=== PATIENT | female | born 1995 | race Caucasian/White ===

== ENCOUNTER → 2017-08-08 22:02 | Outpatient (CLI) | payer OTHER, SELFPAY | PROVIDERS: Visit Provider Physician Assistant | DX: J02.9 Acute pharyngitis, unspecified (principal) | CPT/HCPCS: 87081 ==

== ENCOUNTER → 2017-12-14 18:00 | Outpatient (CLI) | payer OTHER, SELFPAY ==
--- NOTE | 2017-12-14 18:23 | CT_ITS ---
STUDY: CT MAXILLOFACIAL SINUSES REASON FOR EXAM: Female, 22 years old. Sinusitis. RADIATION DOSAGE (If Supplied By Facility): CTDIvol = ( 33.06 ) mGy, DLP = ( 854.51 ) mGycm TECHNIQUE: The patient was scanned in a multi detector CT scanner. High resolution axial imaging was performed without the administration of intravenous contrast material. Sagittal and coronal images were reconstructed. Individualized dose optimization techniques were used for this CT. COMPARISON: None. FINDINGS: FRONTAL SINUSES: Normal aeration, without mucosal inflammatory disease. ETHMOIDAL SINUSES: Normal aeration, without mucosal inflammatory disease. MAXILLARY SINUSES: Normal aeration, without mucosal inflammatory disease. SPHENOIDAL SINUSES: Normal aeration, without mucosal inflammatory disease. There is patency of the bilateral maxillary infundibuli with normal uncinate processes, ethmoid bullae, and hiatus semilunaris. Normal bilateral middle turbinates. Normal bilateral inferior turbinates. Normal midline nasal septum. There is patency of the bilateral nasal airways. The visualized osseous structures are normal. The visualized bilateral orbital contents are normal. CT/Sinus/Facial Bone IMPRESSION: Normal CT examination of the maxillofacial sinuses. Electronically Signed: Torres Bar MD at 21:41 EDT , Service support ,
== END ==
PROVIDERS: Visit Provider Otolaryngology
DX: J32.9 Chronic sinusitis, unspecified (principal)
CPT/HCPCS: 70486

== ENCOUNTER → 2018-05-08 11:52 | Outpatient (CLI) | payer OTHER, SELFPAY ==
--- NOTE | 2018-05-08 17:00 | STRESSREP ---
Stress Test Report Exercise stress test. 22-year-old lady with a history of chest pain. Stress protocol: Resting EKG demonstrates sinus rhythm with a rate of 48 bpm and sinus arrhythmia. The patient exercised according to regular Bj protocol for total duration of 13 minutes and 21 seconds the maximum heart rate attained was 171 bpm which was 85% of maximum predicted heart rate maximum workload was 15.9 metabolic equivalents. At rest there were no ST or T wave changes noted suggest ischemia at peak exercise upsloping ST changes only were noted with no meet the criteria for ischemia. No clinical angina was noted. The patient had mild dizziness 9 minutes into the exercise. She did complain of mild chest pressure. The above did not appear to be suggestive of ischemia. The resting blood pressure 102/50 with a peak blood pressure 144/30 mmHg with a rate pressure product was 23,300. Conclusion 1. exercise stress test with no EKG criteria for ischemia at a high workload. no arrhythmias noted No obvious clinical angina noted.
== END ==
PROVIDERS: PCP Physician Assistant; Referring Provider Internal Medicine Cardiovascular Disease; Visit Provider Internal Medicine Cardiovascular Disease
DX: R07.9 Chest pain, unspecified (principal)
CPT/HCPCS: 93017

== ENCOUNTER 2018-07-19 12:38 | Emergency (ER) | payer OTHER, SELFPAY ==
[2018-07-12 10:05] VITALS: BMI 21.7
[2018-07-19 12:39] VITALS: BP 105/48; PULSE 75; RESP 16; TEMP 37.1; O2SAT 98; BMI 22.6
--- NOTE | 2018-07-19 12:59 | CT_ITS ---
STUDY: CT ABDOMEN AND PELVIS WITHOUT CONTRAST REASON FOR EXAM: Female, 22 years old. Bilateral flank pain worse on the right side. Recent UTI. RADIATION DOSAGE (If Supplied By Facility): CTDIvol = ( 5.33 ) mGy, DLP = ( 244.06 ) mGycm TECHNIQUE: Transaxial images were obtained from the dome of the diaphragm to the symphysis pubis without oral contrast, and without intravenous contrast. Sagittal and coronal images were reconstructed. Individualized dose optimization techniques were used for this CT. COMPARISON: None. FINDINGS: The visualized lung bases are unremarkable. The visualized portions of the heart are within normal limits. Normal liver. Normal gallbladder and extrahepatic biliary system. Normal spleen. Normal pancreas. Normal bilateral adrenal glands. Normal right kidney. Normal left kidney. There is a small hiatal hernia. Normal small intestine. Large amount of fecal material is in the colon. The appendix is visualized and appears normal. Normal abdominal aorta. Normal inferior vena cava. Normal retroperitoneum. Normal urinary bladder. IUD is seen within the uterus. Normal abdominal wall. Normal osseous structures. CT/Abdomen/Pelvis without Cont IMPRESSION: Large amount of fecal material is seen throughout the colon. Electronically Signed: Sam Torres MD at 13:57 EST , Service support ,
[2018-07-19 13:27] LABS: Absolute Lymphocyte Count 2.07 X10^3/ul (0.83-4.51); Absolute Neutrophil Count 3.1 X10^3/uL (2.0-7.7); Basophil# 0.02 X10^3/uL; Basophil% 0.4 % (0-1); Eosinophil# 0.05 X10^3/uL; Eosinophils% 0.9 % (0-5); Hematocrit 39.1 % (37-47); Hemoglobin 13.4 g/dl (12.0-15.0); Lymphocyte # 2.07 X10^3/ul (4.0); Lymphocyte % 37.7 % (19-41); Mean Corp Hgb Conc 34.3 g/gl (32-36); Mean Corpuscular Hgb 30.4 pg (27.0-32.0); Mean Corpuscular Volume 88.7 fL (81-99); Mean Platelet Vol. 9.6 fl (6.2-12.0); Monocyte# 0.26 X10^3/uL; Monocyte% 4.7 % (0-10); Neutrophil # 3.08 X10^3/uL (2.7-7.7); Neutrophil % 56.1 % (47-70); Platelet Count 192 K/mm3 (150-450); RBC Distribution Width CV 12.2 % (11.6-14.6); RBC Distribution Width SD 39.4 fl (35.1-43.9); Red Blood Count 4.41 M/mm3 (4.2-5.4); White Blood Count 5.5 K/mm3 (4.4-11.0)
[2018-07-19] MEDS: 0.9% Normal Saline 1,000 ML 150 ML IV (13:27)
[2018-07-19 13:28] LABS: POSITIVE COUNT NO; POSITIVE DIFFERENTIAL NO; POSITIVE MORPHOLOGY NO
[2018-07-19 13:42] LABS: ALB/GLOB Ratio 1.2 RATIO (0.9-2.4); AST(SGOT) 19 U/L (15-37); Alanine Aminotransfer ALT/SGPT 30 U/L (13-56); Albumin, Serum 3.8 g/dL (3.2-5.0); Alkaline Phosphatase 74 U/L (45-117); Anion Gap 10 (5-15); BUN 16 mg/dL (7-18); BUN/Creat Ratio 22.9 RATIO (10-20); Calcium,Total 8.5 mg/dL (8.5-10.1); Chloride 110 mmol/L (98-107); EST Glomerular Filtration Rate 112 mL/min (>60); Est Glom Filt Rate - Afr Amer 135 mL/min (>60); Estimated Creatinine Clearance 95.93 ml/min; Globulin 3.1 g/dL (2.2-4.2); Glucose 84 mg/dL (74-106); Lipase 246 U/L (73-393); Potassium 3.6 mmol/L (3.5-5.1); Protein, Total 6.9 g/dL (6.4-8.2); Sodium Level 143 mmol/L (136-145)
[2018-07-19 13:50] LABS: Bacteria 0 SEEN /hpf (None Seen); Mucous, Urine 0 SEEN /hpf (<or=2+); Red Blood Cells-Urine 0 SEEN /hpf (0-5)
[2018-07-19 13:52] LABS: Lactic Acid 0.7 mmol/L (0.4-2.0)
[2018-07-19 14:03] VITALS: BP 108/51; PULSE 71; RESP 14; O2SAT 100
[2018-07-19 14:07] LABS: Color, Urine Yellow (Yellow); Glucose, Dipstick Normal (Normal); Ketone-Dipstick Negative (Negative); Leukocyte Esterase-Dipstick 25 /ul (Negative); Nitrite-Dipstick Negative (Negative); Occult Blood-Urine Negative /ul (Negative); Protein-Dipstick Negative (Negative); Urine Bilirubin Dipstick Negative (Negative); Urine Clarity Sl. Cloudy (Clear); Urine Urobilinogen Normal (Normal)
[2018-07-19 14:09] LABS: Squamous Epithelial Cells - UA 0-5 SEEN /hpf (5-10); White Blood Cells 0-5 SEEN /hpf (0-5)
--- NOTE | 2018-07-19 14:28 | ED.VISSUMM ---
- ER Visit Summary Date of Service: 07/19/18 Chief Complaint: [Flank pain] History of Present Illness: The patient is a 22 F [presents the emergency department complaint of flank pain that she is had for about 10 days. Patient was seen about a week ago at an urgent care and diagnosed with a urinary tract infection and started on an antibiotic which she is been on for about a week now. Patient cannot tell me the name of the antibiotic. Patient continues to complain of dysuria and frequency. She denies any fever. She is had no vomiting. Patient describes the pain as her lower abdomen and both sides of her back but more on the right than the left. Patient was seen again today by her primary care physician and sent to the ER for evaluation. She had a urine test in the office today that was negative. Patient also has the Mirena IUD in place and does not believe she is .] Physical Examination: [HEENT-PERRLA, EOMI. Cranial nerves II through XII grossly intact. TMs clear. Mucous membranes moist. No adenopathy. Cardiovascular-regular rate and rhythm without murmur or ectopy Lungs-clear to auscultation, chest wall stable without crepitus or subcu emphysema Abdomen-normoactive bowel sounds, soft patient has tenderness palpation over the suprapubic region. There is some mild guarding. No rebound, rigidity, or perineal signs. No masses palpated. Patient does have CVA tenderness bilaterally. Extremities-intact ?4, normal range of motion, normal pulses, atraumatic] Test Results: [CBC with differential obtained showed a white blood cell count of 5.5, hemoglobin 13, hematocrit 39, placed 192. Chemistries were normal. LFTs were normal. Lipase is normal. Urinalysis was normal. 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 Patient states that she had similar pain at the age of 19 that just resolved over time.] Disposition: [Discharged home in stable condition. Patient advised to return if fever, vomiting, worsening pain, or condition should worsen anyway.] Impression: [Abdominal pain-etiology uncertain] This note was generated with Dragon dictation software. It may contain incorrect words, spelling, and punctuation that were not noted in review of the chart prior to signing ED Disposition - Plan for ED Patient: Chief Complaint: Flank Pain Referrals: Dimple Silver PA [Primary Care Provider] -
--- NOTE | 2018-07-19 14:32 | ED.DCSUM_ITS ---
- ER Visit Summary Date of Service: 07/19/18 Chief Complaint: [Flank pain] History of Present Illness: The patient is a 22 F [presents the emergency department complaint of flank pain that she is had for about 10 days. Patient was seen about a week ago at an urgent care and diagnosed with a urinary tract i nfection and started on an antibiotic which she is been on for about a week now. Patient cannot tell me the name of the antibiotic. Patient continues to complain of dysuria and frequency. She denies any fever. She is had no vomiting. Patient describes the pain as her lower abdomen and both sides of her back but more on the right than the left. Patient was seen again today by her primary care physician and sent to the ER for evaluation. She had a urine test in the office today that was negative. Patient also has the Mirena IUD in place and does not believe she is .] Physical Examination: [HEENT-PERRLA, EOMI. Cranial nerves II through XII grossly intact. TMs clear. Mucous membranes moist. No adenopathy. Cardiovascular-regular rate and rhythm without murmur or ectopy Lungs-clear to auscultation, chest wall stable without crepitus or subcu emphysema Abdomen-normoactive bowel sounds, soft patient has tenderness palpation over the suprapubic region. There is some mild guarding. No rebound, rigidity, or perineal signs. No masses palpated. Patient does have CVA tenderness bilaterally. Extremities-intact ?4, normal range of motion, normal pulses, atraumatic] Test Results: [CBC with differential obtained showed a white blood cell count of 5.5, hemoglobin 13, hematocrit 39, placed 192. Chemistries were normal. LFTs were normal. Lipase is normal. Urinalysis was normal. 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 Patient states that she had similar pain at the age of 19 that just resolved over time.] Disposition: [Discharged home in stable condition. Patient advised to return if fever, vomiting, worsening pain, or condition should worsen anyway.] Impression: [Abdominal pain-etiology uncertain] This note was generated with [email or web address] dictation software. It may contain incorrect words, spelling, and punctuation that were not noted in review of the chart prior to signing ED Disposition - Plan for ED Patient: Chief Complaint: Flank Pain Referrals: Dimple Silver PA [Primary Care Provider] -
--- NOTE | 2018-07-19 14:32 | ED.DEP ---
ED Disposition - Plan for ED Patient: Chief Complaint: Flank Pain Instructions: ED Abdominal Pain Unkn Cause Referrals: Dimple Silver PA [Primary Care Provider] - 3-5 Days Claire Chang [STAFF PHYSICIAN] -
--- OUTSIDE RECORDS SUMMARY | 2018-09-20 12:22 | XMS RPT_ITS ---
:1995 Author Organization OHIP Support Name Relationship Address Phone KIAH INS Unavailable [address] + [place] [address] CHRISTIANA KENNEDY Unavailable [address] + [place] [address] MALINI SHAE Unavailable [address] + [place] [address] KIAH INS Unavailable [address] + [place] [address] MARCIA, CHRISTIANA Unavailable [address] + [place] [address] MALINI SHEA Unavailable [address] + [place] [address] KIAH INS Unavailable [address] + [place] [address] SHESHARRI, CHRISTIANA Unavailable [address] + [place] [address] MALINI, SHEA Unavailable Unavailable + [place] [address] KIAH INS Unavailable [address] + [place] [address] SHEELY, CHRISTIANA Unavailable [address] + [place] [address] MALINI SHEA Unavailable [address] + [place] [address] KIAH INS Unavailable . + [place] [address] MARCIA, CHRISTIANA Unavailable [address] + [place] [address] MALINI SHEA Unavailable [address] + [place] [address] KIAH INS Unavailable . + [place] [address] CHRISTIANA KENNEDY Unavailable [address] + [place] [address] ALBA NAYAKORAH Unavailable [address] + [place] [address] KIAH INS Unavailable . + [place] [address] CHRISTIANA KENNEDY Unavailable [address] + [place] [address] SPRCHIDI SHEA Unavailable [address] + [place] [address] CHRISTIANA KENNEDY Unavailable [address] + [place] [address] ALBA NAYAKORAH Unavailable [address] + [place] [address] UE Unavailable Unavailable Unavailable CHRISTIANA KENNEDY Unavailable [address] + [place] [id number] ALBA NAYAKORAH Unavailable [address] + [place] [id number] UE Unavailable Unavailable Unavailable Care Team Providers Name Role Phone JACKI WISE (PIPE SUPERVISOR) Attending Unavailable Justice Morejon Attending Unavailable SILVER, JUVENTINO Referring Unavailable Ungur, Remus Attending Unavailable SILVER, JUVENTINO Primary Care Unavailable Justice Morejon Attending Unavailable Primay Care Physicia, No Referring Unavailable Primay Care Physicia, No Primary Care Unavailable Justice Morejon Attending Unavailable Primay Care Physicia, No Primary Care Unavailable Justice Morejon Referring Unavailable Arnulfoann, Varun Attending Unavailable Primay Care Physicia, No Primary Care Unavailable Glynntmann, Varun Referring Unavailable Natty Gibson Attending Unavailable Teresita, José Luis Attending Unavailable SILVER, JUVENTINO Referring Unavailable Teresita, [place] Attending Unavailable Teresita, [place] Referring Unavailable Primay Care Physicia, No Primary Care Unavailable Teresita, [place] Attending Unavailable Teresita, [place] Referring Unavailable PROBLEMS PROBLEMS DATE TYPE CONDITION / CODE ATTENDING STATUS SOURCE 07/19/2018 Unknown R11.0 - Nausea / Justice Morejon Active [facility] R11.0(ICD-10) [facility] Repository 07/19/2018 Unknown N30.90 - Justice Morejon Active [facility] Cystitis, Community unspecified Hospital without hematuria Repository / N30.90(ICD-10) 07/19/2018 Unknown R07.9 - Chest Teresita, José Luis Active [facility] pain, unspecified Community / R07.9(ICD-10) Hospital Repository 04/26/2018 Unknown R42 - Dizziness Teresita, José Luis Active [facility] and giddiness / Community R42(ICD-10) Hospital Repository 04/26/2018 Unknown R55 - Syncope and Teresita, [place] Active [facility] collapse / Community R55(ICD-10) Hospital Repository 04/26/2018 Unknown Z82.49 - Family Teresita, [place] Active [facility] history of Community ischemic heart Hospital disease and other Repository diseases of the circulatory system / Z82.49(ICD-10) 08/09/2017 Unknown J02.9 - Acute Justice Morejon Active [facility] pharyngitis, Community unspecified / Hospital J02.9(ICD-10) Repository 08/08/2017 Unknown R52 - Pain, Justice Morejon Active [facility] unspecified / Community R52(ICD-10) Hospital Repository PROCEDURES PROCEDURES No Procedure Records FoundRESULTS RESULTS EMERGENCY DEPARTMENT Observed: 07/19/2018 Status: F Source: MARKS SUMMARY 2:32 PM [facility] [place] Medical Records Department [address] [place] [address] Emergency Department Summary 07/19/18 1428 MR#: [id number] Acct: [id number] Name: ROXY NAYAK Rep #: [id number] : 1995 22 From: Deandre [place] DO PCP: EDITH MERINO Status: REG ER - ER Visit Summary Date of Service: 07/19/18 Chief Complaint: [Flank pain] History of Present Illness: The patient is a 22 F [presents the emergency department complaint of flank pain that she is had for about 10 days. Patient was seen about a week ago at an urgent care and diagnosed with a urinary tract infection and started on an antibiotic which she is been on for about a week now. Patient cannot tell me the name of the antibiotic. Patient continues to complain of dysuria and frequency. She denies any fever. She is had no vomiting. Patient describes the pain as her lower abdomen and both sides of her back but more on the right than the left. Patient was seen again today by her primary care physician and sent to the ER for evaluation. She had a urine test in the office today that was negative. Patient also has the Mirena IUD in place and does not believe she is .] Physical Examination: [HEENT-PERRLA, EOMI. Cranial nerves II through XII grossly intact. TMs clear. Mucous membranes moist. No adenopathy. Cardiovascular-regular rate and rhythm without murmur or ectopy Lungs-clear to auscultation, chest wall stable without crepitus or subcu emphysema Abdomen-normoactive bowel sounds, soft patient has tenderness palpation over the suprapubic region. There is some mild guarding. No rebound, rigidity, or perineal signs. No masses palpated. Patient does have CVA tenderness bilaterally. Extremities-intact 4, normal range of motion, normal pulses, atraumatic] Test Results: [CBC with differential obtained showed a white blood cell count of 5.5, hemoglobin 13, hematocrit 39, placed 192. Chemistries were normal. LFTs were normal. Lipase is normal. Urinalysis was normal. 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 Patient states that she had similar pain at the age of 19 that just resolved over time.] Disposition: [Discharged home in stable condition. Patient advised to return if fever, vomiting, worsening pain, or condition should worsen anyway.] Impression: [Abdominal pain-etiology uncertain] This note was generated with [employer] dictation software. It may contain incorrect words, spelling, and punctuation that were not noted in review of the chart prior to signing ED Disposition - Plan for ED Patient: Chief Complaint: Flank Pain Referrals: Juventino Silver PA [Primary Care Provider] - What to do if you have Problems For any increased pain, shortness of breath, bleeding, nausea or vomiting, chest pain, or any unexpected problems, contact your Primary Care Provider. Call [facility] ([phone]) or report to the closest Emergency Room. Call 911 if necessary. 07/19/18 1432 <Electronically signed by Deandre [place] DO> Date Amy Iram NELSON Cosigngaudencio Signature (If Indicated): Date CC: EDITH SILVER DISCHARGE INSTRUCTION Observed: 07/19/2018 Status: F Source: VENUS 2:32 PM [facility] REPOSITORY [facility] Medical Records Department [address] [place] [address] Discharge Instruction 07/19/18 143 MR#: [id number] Acct: [id number] Name: ROXY NAYAK Rep #: [id number] : 1995 22 From: Deandre [place] DO PCP: EDITH MERINO Status: REG ER ED Disposition - Plan for ED Patient: Chief Complaint: Flank Pain Instructions: ED Abdominal Pain Unkn Cause Referrals: Juventino Silver PA [Primary Care Provider] - 3-5 Days Claire Chang [STAFF PHYSICIAN] - What to do if you have Problems For any increased pain, shortness of breath, bleeding, nausea or vomiting, chest pain, or any unexpected problems, contact your Primary Care Provider. Call [facility] ([phone]) or report to the closest Emergency Room. Call 911 if necessary. 07/19/181431 <Electronically signed by Deandre [place] DO> Date Amy Iram NELSON Cosigngaudencio Signature (If Indicated): Date CC: EDITH SILVER URINALYSIS, COMPLETE Collected: 07/19/2018 Status: F Source: [facility] 1:45 PM [facility] Order Comment: How was Urine Obtained? CLEAN CATCH TYPE CODE TESTS RESULT OUT OF RANGE REFERENCE UNITS LAB L400.3000 Yellow COLOR Normal Yellow LAB L400.3050 Clear Normal CLARITY Sl. Cloudy LAB L400.3200 Normal mg/dl Normal GLUCOSE, UR Normal LAB L400.3300 Negative mg/dL Normal BILIRUBIN URINE Negative LAB L400.3400 Negative mg/dl Normal KETONE UR Negative LAB L400.3465 1.002-1.030 Normal SP.GR. DIPSTX 1.010 LAB L400.3550 5.0 - 8.0 pH UR Normal 7.0 LAB L400.3600 Negative mg/dl PROT Normal DIPSTX Negative LAB L400.3700 Normal mg/dl Normal UROBILI Normal LAB L400.3750 Negative Normal NITRITE UR Negative LAB L400.3780 Negative /ul Normal OCCULT BLOOD-UR Negative LAB L400.3800 Negative /ul High LEUK 25 ESTERASE LAB L400.4050 0-5 /hpf WBC Normal 0-5 SEEN LAB L400.4100 0-5 /hpf 0 Normal RBC-UA SEEN LAB L400.4150 5-10 /hpf SQUAM Normal EPI 0-5 SEEN LAB L400.4300 None Seen /hpf 0 Normal BACTERIA SEEN LAB L400.4350 <or=2+ /hpf 0 Normal MUCUS, URINE SEEN Performed By: #### L400.0001 #### [facility] [address] [place], [place], [address] LACTIC ACID Collected: 07/19/2018 Status: F Source: MARKS 1:20 PM [facility] [place] Order Comment: Yes/No query for Sepsis Lactate Rule Y TYPE CODE TESTS RESULT OUT OF RANGE REFERENCE UNITS LAB L503.6005 0.4-2.0 mmol/L Normal LACTIC ACID 0.7 Performed By: #### L503.6005 #### [facility] [address] [place], [place], [address] CBC W/DIFF, AUTOMATED Collected: 07/19/2018 Status: F Source: MARKS 1:06 PM [facility] [place] TYPE CODE TESTS RESULT OUT OF RANGE REFERENCE UNITS LAB L100.1000 4.4-11.0 K/mm3 Normal WBC 5.5 LAB L100.1200 4.2-5.4 M/mm3 Normal RBC 4.41 LAB L100.1300 12.0-15.0 g/dl Normal HGB 13.4 LAB L100.1400 37-47 % Normal HCT 39.1 LAB L100.1500 81-99 fL Normal MCV 88.7 LAB L100.1600 27.0-32.0 pg Normal MCH 30.4 LAB L100.1700 32-36 g/gl Normal MCHC 34.3 LAB L100.1810 11.6-14.6 % Normal RDW CV 12.2 LAB L100.1820 35.1-43.9 fl Normal RDW SD 39.4 LAB L100.1900 150-450 K/mm3 Normal PLT 192 LAB L100.2000 6.2-12.0 fl Normal MPV 9.6 LAB L100.2100 47-70 % Normal NEUT% 56.1 LAB L100.2200 19-41 % Normal LY% 37.7 LAB L100.2300 0-10 % Normal MONO% 4.7 LAB L100.2400 0-5 % Normal EO% 0.9 LAB L100.2500 0-1 % Normal BASO% 0.4 LAB L100.2550 0.0-0.9 % Normal IM GRAN % 0.200 Result Comment: IG% - Immature Granulocytes (promyelocytes, myelocytes and metamyelocytes) > 1% indicates that a LEFT SHIFT is Present. LAB L100.2620 2.0-7.7 X10 3/uL Normal Absolute Neut 3.1 LAB L100.2720 0.83-4.51 X10 3/ul Normal Absolute Lymph 2.07 Performed By: #### L100.0100 #### [facility] [address], [address] COMPREHENSIVE METABOLIC Collected: 07/19/2018 Status: F Source: [facility] 1:06 PM [facility] [place] [facility] TYPE CODE TESTS RESULT OUT OF RANGE REFERENCE UNITS LAB L501.0100 74-106 mg/dL Normal GLU 84 Result Comment: Please note revised GLUCOSE reference range effective 2017. LAB L501.1000 7-18 mg/dL Normal BUN 16 LAB L501.1100 0.55-1.02 mg/dL Normal CREAT,SERUM 0.70 Result Comment: The validity of the calculated GFR AND GFRAA in patients over 70 years has not been determined. Clinical correlation is essential. LAB L501.1110 >60 mL/min Normal EST GFR 112 Result Comment: Non- GFR Calc LAB L501.1115 >60 mL/min Normal EST GFR - AA 135 Result Comment: GFR Calc LAB L501.1255 ml/min Normal Estimated CRCL 95.93 LAB L501.1300 10-20 RATIO High BUN/CRE 22.9 LAB L501.1500 6.4-8. g/dL Normal 2 T PROT 6.9 LAB L501.1800 3.2-5. g/dL Normal 0 ALB 3.8 LAB L501.1950 2.2-4. g/dL Normal 2 GLOB 3.1 LAB L501.2000 0.9-2. RATIO Normal 4 A/G 1.2 LAB L501.2200 8.5-10 mg/dL Normal .1 CA 8.5 LAB L501.4100 15-37 U/L Normal AST 19 LAB L501.4305 45-117 U/L Normal ALK P 74 LAB L501.4405 13-56 U/L Normal ALT 30 LAB L501.4600 0.20-1 mg/dL Normal .00 T BILI 0.50 LAB L501.5300 136-14 mmol/L Normal 5 NA 143 LAB L501.5600 3.5-5. mmol/L Normal 1 K 3.6 LAB L501.5900 98-107 mmol/L High CL 110 LAB L501.6100 21.0-3 mmol/L Normal 2.0 CO2 23.0 LAB L501.6200 5-15 Normal GAP 10 Performed By: #### L500.4050, L501.2450 #### [facility] [address] [place], [place], [address] LIPASE Collected: 07/19/2018 Status: F Source: MARKS 1:06 PM [facility] [place] [facility] TYPE CODE TESTS RESULT OUT OF RANGE REFERENCE UNITS LAB L501.2450 73-393 U/L Normal LIPASE 246 Performed By: #### L500.4050, L501.2450 #### [facility] [address] [place], [place], [id number] ABDOMEN/PELVIS WITHOUT Observed: 07/19/2018 Status: F Source: VEN[place] CONT 1:00 PM [facility] [place] [facility] Imaging [place] [address] Abdomen/Pelvis without Cont MR#: [id number] Acct: [id number] Name: ROXY NAYAK Rep #: [id number] : 1995 F 22 From: Sam Torres MD PCP: EDITH MERINO Status: REG ER Study: Abdomen/Pelvis without Cont Date of Exam: 07/19/18 Exam# [id number] Ordering Dr: Deandre [place]den DO STUDY: CT ABDOMEN AND PELVIS WITHOUT CONTRAST REASON FOR EXAM: Female, 22 years old. Bilateral flank pain worse on the right side. Recent UTI. RADIATION DOSAGE (If Supplied By Facility): CTDIvol = ( 5.33 ) mGy, DLP = ( 244.06 ) mGycm TECHNIQUE: Transaxial images were obtained from the dome of the diaphragm to the symphysis pubis without oral contrast, and without intravenous contrast. Sagittal and coronal images were reconstructed. Individualized dose optimization techniques were used for this CT. COMPARISON: None. FINDINGS: The visualized lung bases are unremarkable. The visualized portions of the heart are within normal limits. Normal liver. Normal gallbladder and extrahepatic biliary system. Normal spleen. Normal pancreas. Normal bilateral adrenal glands. Normal right kidney. Normal left kidney. There is a small hiatal hernia. Normal small intestine. Large amount of fecal material is in the colon. The appendix is visualized and appears normal. Normal abdominal aorta. Normal inferior vena cava. Normal retroperitoneum. Normal urinary bladder. IUD is seen within the uterus. Normal abdominal wall. Normal osseous structures. CT/Abdomen/Pelvis without Cont IMPRESSION: Large amount of fecal material is seen throughout the colon. Electronically Signed: Sam Torres MD at 13:57 EST , Service support , CC: EDITH SILVER; Deandre Walden DO Mud Logger: Signed URGENT CARE VISIT Observed: 07/12/2018 Status: F Source: MARKS REPORT 11:54 AM [facility] [place] [facility] [address] [place] [address] [address] [place] [address] OFFICE VISIT Date of Service: 07/12/18 MR#: [id number] Acct: [id number] Name: ROXY NAYAK Rep #: [id number] : 1995 Provider: Justice SHARMA Age/Sex: 22/F Location: [facility] Status: Signed Intake Vital Signs07/12/18 Height 5 ft 1 in Intake Visit Reasons: ACHY, NAUSEA X 4 DAYS Chief Complaint: nauseous 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: No Accompanied by: self Is patient in pain?: No Allergies Sulfa (Sulfonamide Antibiotics) Adverse Reaction (Verified 07/12/18 10:06) Vomiting Medications levonorgestrel 20 mcg/24 hr (5 years) intrauterine device 1 insert INTRAUTERINE ONCE 04/25/18 [History Confirmed 07/12/18] ciprofloxacin 500 mg tablet 500 mg PO BID #14 tab 07/12/18 [Rx Confirmed 07/12/18] PFS Medical History Family history of coronary artery disease (Chronic) Surgical History History of tooth extraction (Resolved) Family History Mother CAD (coronary artery disease) Coronary stents age 48 Grandmother CAD (coronary artery disease) Grandfather CVA (cerebral vascular accident) Social History Smoking Status: Never smoker HPI HPI Chief Complaint: nauseous Details: ROXY NAYAK, is a 22 F who presents to the office today for initial evaluation approximately 3-4-day history of progressively worsening nausea and mild back pain. She notes occasional chills though no complaints of fever, sweats, rash, abdominal pain, changes in bowel or bladder function, chest pressure/shortness of breath, syncope/near syncope. She has taken no mnph-sjo-ivimxgb products to assist with symptoms. She notes recently having been prescribed levonorgestrel for control. She notes no other associated symptoms and no other alleviating or aggravating factors. ROS Const Constitutional: No other (ROS negative x10 other than as noted above) Exam Const General: cooperative, healthy appearing, no acute distress, uncomfortable Nutritional Appearance: average body habitus Orientation: alert, awake, oriented x3 HENMT Head: normal to inspection Ears: hearing grossly normal bilaterally, external ears normal Nose: external nose normal Eyes General: appearance normal, both eyes and all related structures Neck Neck: normal visual inspection, full ROM, no lymphadenopathy, no meningeal signs, supple Neck mass: No Thyroid: thyroid normal Lymphatic: no lymphadenopathy noted Chest Chest palpation AND inspection: normal inspection of the chest Resp Effort AND Inspection: normal respiratory effort, able to speak in complete sentences, symmetric chest movement, no cough Auscultation: Bilateral: Clear to Auscultation Cardio Palpation: normal PMI Rate: regular rate Rhythm: regular rhythm Heart Sounds: S1 normal, S2 normal, no gallops, no murmurs, no rubs Pulses: radial pulses present GI Inspection: normal to inspection Palpation: soft, no hepatosplenomegaly, not firm, no guarding, tender suprapubicly; Negative for with no rebound tenderness, Vergara's sign negative or not at McBurney's point General: CVA tenderness on the right, other (See urinalysis dip and urine hCG results) Skin General: no rashes or lesions noted Neuro General: alert, awake, oriented x3, gait normal Cognition: normal cognition Speech: speech normal Gait: normal gait Motor: muscle tone normal throughout Sensory Exam: no sensory deficits noted Psych Appearance: grossly normal Mental Status: mental status grossly normal Mood: congruent mood Affect: normal affect Speech and Movement: speech and movement normal Attitude: cooperative Thought Process: normal Thought Content: normal Judgment: judgment good Results BMS[facility] Office Urine Color YELLOW Last Edit by Kimberlee Jarrell on 07/12/18 10:16 Office Urine Clarity Clear Last Edit by Kimberlee Jarrell on 07/12/18 10:16 [facility]MS[facility] Office , Urine Negative Last Edit by Kimberlee Jarrell on 07/12/18 10:17 Assessment AND Plan Problems 1. Cystitis N30.90 Plan -Consider pyelonephritis Considering examination findings of suprapubic tenderness and right CVA tenderness, recommend hydrating well and take an antibiotic as prescribed. Ciprofloxacin as prescribed today. Appropriate hygiene care is reinforced today. Follow-up with PCP in 3-5 days should symptoms not improve, emergency department sooner should symptoms worsen or any other concerns develop. Patient states acknowledging understanding all the above. This note was generated with [employer] software. It may contain incorrect words, spelling, and punctuation that were not noted in checking the note before signing. Orders Orders: Medications New: Coding Level of Care Code Off vis,est,level 3 Diagnoses Cystitis N30.90 07/12/18 1154 <Electronically signed by Justice SHARMA> Date Justice SHARMA Cosigner Signature: Date (if applicable) CC: STRESS REPORT Observed: 05/08/2018 Status: F Source: MARKS 5:02 PM [facility] [place] [facility] Cardiovascular Services [address] [place] [address] MR#: [id number] Acct: [id number] Name: ROXY NAYAK Rep #: [id number] : 1995 22 From: José Luis Lo MD Primary Care: EDITH MERINO Status: REG CLI Ordering Dr: Sex: F C Stress Test Report Exercise stress test. 22-year-old lady with a history of chest pain. Stress protocol: Resting EKG demonstrates sinus rhythm with a rate of 48 bpm and sinus arrhythmia. The patient exercised according to regular Bj protocol for total duration of 13 minutes and 21 seconds the maximum heart rate attained was 171 bpm which was 85% of maximum predicted heart rate maximum workload was 15.9 metabolic equivalents. At rest there were no ST or T wave changes noted suggest ischemia at peak exercise upsloping ST changes only were noted with no meet the criteria for ischemia. No clinical angina was noted. The patient had mild dizziness 9 minutes into the exercise. She did complain of mild chest pressure. The above did not appear to be suggestive of ischemia. The resting blood pressure 102/50 with a peak blood pressure 144/30 mmHg with a rate pressure product was 23,300. Conclusion 1. exercise stress test with no EKG criteria for ischemia at a high workload. no arrhythmias noted No obvious clinical angina noted. 05/08/181701 <Electronically signed by José Luis Lo MD> Date José Luis Lo MD CC: No Primary Care Physician; EDITH SILVER; José Luis Lo MD Date Dictated: 05/08/181699 Date Transcribed: 05/08/181699 Mud Logger: [place] Signed CYTOLOGY Observed: 04/27/2018 Status: F Source: [place] 12:33 PM [facility] REPOSITORY Specimen originated from [facility] Specimen #: [id number] Submitting Physician: JACKI WISE SPECIMEN SUBMITTED A: CERVICAL, SCREENING, FLUID FINAL DIAGNOSIS A. CERVICAL, SCREENING, FLUID Satisfactory for interpretation. Negative for intraepithelial lesion or malignancy. Acute inflammation. This specimen has been analyzed by the ThinPrep Imaging System, an automated imaging and review system, which assists the laboratory in evaluating cells on ThinPrep Pap tests. Following automated imaging, selected sunshine from every slide are reviewed by a warm in. BAYLEE Lorenzo(ASCP) (Electronic Signature) CLINICAL DATA ROUTINE EXAM, HPV Testing: Yes, Reflex HPV for ASCUS Date of Last Menstrual Period: 03/27/2018 STAINS A: CERVICAL, SCREENING, FLUID THIN PREP FIRE SUPPRESSION CAPTAIN Miranda Ibarra M.D., Global Lead Date of Report: 05/04/2018 Date of Procedure: 04/27/2018 Date of Receipt: 04/28/2018 Submitted by: JACKI WISE Location: [facility] Diagnostic interpretation performed at [facility], [address] [place] [address]. The Pap Smear is a screening test for cervical cancer. False negative results occur with all screening tests, emphasizing the need for rescreening at recommended intervals, and clinical correlation. GC/CHLAMYDIA AMPLIF Collected: 04/27/2018 Status: F Source: [place] 11:45 AM [facility] REPOSITORY TYPE CODE TESTS RESULT OUT OF REFERENCE UNITS RANGE LAB GCCTSR GC/Chlam Amp Cervix Source LAB GCAMPL GC Negative Amplification for Neisseria gonorrhoeae by amplification. LAB CLAMPL Chlamydia Negative Amplif for Chlamydia trachomatis by amplification. Performed By: #### GCCT #### [facility] [address] [place] [address] PROGRESS Observed: 04/27/2018 Status: COMPLETED Source: [place] 11:39 AM [facility] REPOSITORY HNO ID: [id number] Author: Jacki Wise Service: (none) Author Type: Nurse Practitioner Type: Progress Notes Filed: 04/27/2018 12:05 PM Note Text: Roxy Kennedy is a 22 year old who presents for her annual gynecologic exam without complaints. Menses: no menses - Mirena IUD and spotting every other month. Contraception: IUD HPV vaccine: Yes Last Pap: never Last mammogram: never Sexually active: Yes Patient concerns for STD exposure: No. Pain with intercourse: No Postcoital bleeding: No Obstetric History T1 L1 SAB0 TAB0 Ectopic0 Multiple0 Live Births1 PAST MEDICAL HISTORY Diagnosis Date - PMH - PAST MEDICAL HISTORY OF normal color vision PAST SURGICAL HISTORY Procedure Laterality Date - EXTRACTION ERUPTED TOOTH/EXR FAMILY HISTORY Problem Relation Age of Onset - other (ulcerative colitis) Mother - other (MVP) Mother - Skin Cancer Father Melanoma - Heart Maternal Grandmother heart attack - other (irritable bowel) Maternal Grandmother - Rheumatologic disease Paternal Grandfather - other (high cholesterol) Paternal Grandfather - Diabetes Maternal Uncle maternal side - other (lupus) Maternal Uncle - other (heart disease) Maternal Uncle maternal and paternal side SOCIAL HISTORY Social History Substance Use Topics - Smoking status: Never Smoker - Smokeless tobacco: Never Used - Alcohol use No REVIEW OF SYSTEMS Abdomen: No abdominal pain, nausea, vomiting, diarrhea, or constipation. No bloating, early satiety, indigestion, or increased flatulence. Bladder: No dysuria, gross hematuria, urinary frequency, urinary urgency, or incontinence. Breast: No breast lumps, nipple d/c, overlying skin changes, redness or skin retraction. Allergies and current medication updated:Yes EXAM: BP 108/60 Wt 113 lb (51.3kg) LMP 03/27/2018 GENERAL: pleasant, female in no apparent distress HEENT: Normocephalic, atraumatic, mucus membranes moist and no lesions NECK: Supple, full range of motion, no adenopathy and thyroid normal DERMATOLOGY: Normal, without lesions, non-icteric and non-hirsute BREAST: soft, non-tender, symmetric, no dominant mass, normal nipple-areolar complex, no lymphadenopathy and no nipple discharge CHEST: Normal inspiratory effort ABDOMEN: soft, non-tender and no masses PELVIC: external genitalia normal, normal Bartholin's glands, urethra, Zephyrhills's glands, no vulvar lesions, no cervical lesions, good vaginal support, physiologic discharge present, normal appearing perineal body and perianal region, well estrogenized, IUD string visualized BIMANUAL: uterus normal size, shape and consistency, no adnexal masses, non-tender and no cervical motion tenderness RECTOVAGINAL: deferred. NEURO: alert and oriented x3,exam grossly non-focal EXTREMITIES: normal ASSESSMENT/PLAN: 1) Health maintenance: Pap done with reflex HPV. Mammogram starting age 40. Nutrition, exercise and routine health maintenance exams reviewed. Calcium/Vitamin D supplementation information provided. HPV vaccine: completed series 2) Contraception: IUD. Contraceptive options reviewed and information provided. 3) STD screening: Accepted STD check for Gonorrhea and Chlamydia. 4) Follow up one year or sooner as needed Jacki Wise APRN.PIPE SUPERVISOR CNOV Observed: 04/27/2018 Status: COMPLETED Source: [facility] 11:30 AM [facility] Office Visit ([facility]OO[facility]) ROXY KENNEDY ([id number]) 1995 F Date Time Provider Department 04/27/18 11:30 AM JACKI WISE (MONTRELL) [facility] During your visit today, we recorded the following information about you: Blood pressure Weight Last Period 108/60 51.3 kg 03/27/18 Jacki Wise APRN.CNP 04/27/2018 12:05 PM Signed Roxy Kennedy is a 22 year old who presents for her annual gynecologic exam without complaints. Menses: no menses - Mirena IUD and spotting every other month. Contraception: IUD HPV vaccine: Yes Last Pap: never Last mammogram: never Sexually active: Yes Patient concerns for STD exposure: No. Pain with intercourse: No Postcoital bleeding: No Obstetric History T1 L1 SAB0 TAB0 Ectopic0 Multiple0 Live Births1 PAST MEDICAL HISTORY Diagnosis Date - PMH - PAST MEDICAL HISTORY OF normal color vision PAST SURGICAL HISTORY Procedure Laterality Date - EXTRACTION ERUPTED TOOTH/EXR FAMILY HISTORY Problem Relation Age of Onset - other (ulcerative colitis) Mother - other (MVP) Mother - Skin Cancer Father Melanoma - Heart Maternal Grandmother heart attack - other (irritable bowel) Maternal Grandmother - Rheumatologic disease Paternal Grandfather - other (high cholesterol) Paternal Grandfather - Diabetes Maternal Uncle maternal side - other (lupus) Maternal Uncle - other (heart disease) Maternal Uncle maternal and paternal side SOCIAL HISTORY Social History Substance Use Topics - Smoking status: Never Smoker - Smokeless tobacco: Never Used - Alcohol use No REVIEW OF SYSTEMS Abdomen: No abdominal pain, nausea, vomiting, diarrhea, or constipation. No bloating, early satiety, indigestion, or increased flatulence. Bladder: No dysuria, gross hematuria, urinary frequency, urinary urgency, or incontinence. Breast: No breast lumps, nipple d/c, overlying skin changes, redness or skin retraction. Allergies and current medication updated:Yes EXAM: BP 108/60 Wt 113 lb (51.3kg) LMP 03/27/2018 GENERAL: pleasant, female in no apparent distress HEENT: Normocephalic, atraumatic, mucus membranes moist and no lesions NECK: Supple, full range of motion, no adenopathy and thyroid normal DERMATOLOGY: Normal, without lesions, non-icteric and non-hirsute BREAST: soft, non-tender, symmetric, no dominant mass, normal nipple-areolar complex, no lymphadenopathy and no nipple discharge CHEST: Normal inspiratory effort ABDOMEN: soft, non-tender and no masses PELVIC: external genitalia normal, normal Bartholin's glands, urethra, Zephyrhills's glands, no vulvar lesions, no cervical lesions, good vaginal support, physiologic discharge present, normal appearing perineal body and perianal region, well estrogenized, IUD string visualized BIMANUAL: uterus normal size, shape and consistency, no adnexal masses, non-tender and no cervical motion tenderness RECTOVAGINAL: deferred. NEURO: alert and oriented x3,exam grossly non-focal EXTREMITIES: normal ASSESSMENT/PLAN: 1) Health maintenance: Pap done with reflex HPV. Mammogram starting age 40. Nutrition, exercise and routine health maintenance exams reviewed. Calcium/Vitamin D supplementation information provided. HPV vaccine: completed series 2) Contraception: IUD. Contraceptive options reviewed and information provided. 3) STD screening: Accepted STD check for Gonorrhea and Chlamydia. 4) Follow up one year or sooner as needed Jacki Wise APRN.MONTRELL Engel Ma 04/27/2018 11:40 AM Signed POST IUD INSTRUCTIONS You may have irregular bleeding during the first 3 months of use. You may have mild-severe cramping for the next 48 hours. You may use over the counter medication (Motrin, Tylenol) as needed. Your IUD must be removed or replaced in 3 years if you have a Dolly, 5 years if you have a Mirena or Kyleena and 10 years if you have a Paragard. Call my office for signs/symptoms of infection such as severe cramping, fever, or unusual bleeding. Check for string placement as instructed by your doctor. If you have any additional questions, please contact the office. Conner Engel Ma 04/27/2018 12:27 PM Signed Addended by: CONNER ENGEL MA on: 04/27/2018 12:27 PM Modules accepted: Kim Shell APRN.CNP 04/27/2018 12:33 PM Signed Addended by: JACKI WISE on: 04/27/2018 12:33 PM Modules accepted: Orders Referring Provider: SELF [200] Allergies As of Date: 04/27/2018 Noted Allergy Reaction SULFA (SULFONAMIDE ANTIBIOTICS) 08/19/2015 8 - GI Upset Date Reviewed: 04/27/2018 Reviewed by: Jacki (Montrell) Frandy - Fully Assessed Reason for Visit: Insertion Of IUD [291] Reason For Visit History Recorded Primary Visit Diagnosis:Encounter for annual routine gynecological examination [Z01.419] Other Visit Diagnoses:IUD check up [Z30.431] Encounter for gynecological examination without abnormal finding [Z01.419] Screening for malignant neoplasm of cervix [Z12.4] Order(s):HCG QUAL UR B/O [0519261] Order #: [id number] PAP FLUID CERVICAL SCREENING [4673009] Order #: [id number] GC/CHLAMYDIA DNA DET [SQGCCAMP] Order #: [id number] Prescriptions as of 04/27/2018 Sig: LEVONORGESTREL 20 MCG/24 HR (* Inserted in office IRON ORAL Take by mouth. DHA ORAL Take by mouth. Problem List As Of Date 04/27/2018 Noted Resolved Paresthesias [R20.2] INVALID FOR* Hyperopia [H52.00] INVALID FOR* Problem focusing eyes [H54.7] INVALID FOR* Supervision of normal first teen in f*INVALID FOR*12/07/2016 More... Other instructions from your clinician: POST IUD INSTRUCTIONS You may have irregular bleeding during the first 3 months of use. You may have mild-severe cramping for the next 48 hours. You may use over the counter medication (Motrin, Tylenol) as needed. Your IUD must be removed or replaced in 3 years if you have a Dolly, 5 years if you have a Mirena or Kyleena and 10 years if you have a Paragard. Call my office for signs/symptoms of infection such as severe cramping, fever, or unusual bleeding. Check for string placement as instructed by your doctor. If you have any additional questions, please contact the office. Disposition: Return in about 5 weeks (around 06/01/2018) for Follow Up In 4-6 Weeks/ANNUAL. Follow-up and Disposition History Recorded Encounter Status:Closed by JACKI WISE on 04/27/18 CARDIOLOGY VISIT Observed: 04/26/2018 Status: F Source: [facility] 3:00 PM [facility] [place] [facility] [address] [place] [address] OFFICE VISIT Date of Service: 04/26/18 MR#: [id number] Acct: [id number] Name: ROXY KENNEDY Rep #: [id number] : 1995 Provider: José Luis Lo MD Age/Sex: 22/F Location: [facility] [place].[facility] Status: Signed HPI HPI Chief Complaint: Evaluation of fatigue Details: ROXY KENNEDY, is a 22 F who presents to the office today for evaluation of fatigue. She is a lady with a family history of coronary artery disease who says that she has been having intermittent periods of dizziness. She was evaluated last year with an echocardiogram with demonstrated preserved ejection fraction as well as a 24-hour Holter monitor which demonstrated no significant abnormalities. She has had no neck, jaw discomfort suggest angina. She has been having chest discomfort which appears to be episodic and not necessarily related to activity. It can occur on the right and left side of her chest multiple times a day. She tells me that she is not under any significant stress. Her electrocardiogram demonstrates normal sinus rhythm with sinus arrhythmia rate of 58 bpm her physical exam demonstrates clear lung sunshine regular rate and rhythm and no pedal edema. Intake Vital Signs04/26/18 Height 5 ft 1 in 04/26/18 Weight: 115 lb 04/26/18 Body Mass Index (BMI) 21.7 04/26/18 Blood Pressure 92/58 L 04/26/18 Respiratory Rate 16 04/26/18 Pulse Rate 82 Intake Visit Reasons: PCP ref'd for strong family Hx Allergies Sulfa (Sulfonamide Antibiotics) Adverse Reaction (Verified 04/26/18 13:59) Vomiting Medications levonorgestrel 20 mcg/24 hr (5 years) intrauterine device 1 insert INTRAUTERINE ONCE 04/25/18 [History Confirmed 04/26/18] [facility] Medical History Family history of coronary artery disease (Chronic) Surgical History History of tooth extraction (Resolved) Family History Mother CAD (coronary artery disease) Coronary stents age 48 Grandmother CAD (coronary artery disease) Grandfather CVA (cerebral vascular accident) Social History Smoking Status: Never smoker ROS Const Const: Negative for fatigue, weakness, difficulty sleeping, frequent falls, excessive sweating or headache(s) Eyes Eyes: Negative for loss of peripheral vision, transient loss of vision, blurry vision, tunnel vision or double vision ENT ENT: Positive for dizziness; negative for headache(s), Nosebleed/epistaxis or balance problems Cardio Chest Pain: Yes Onset: at rest, exercise Location: mid sternal, right chest, left chest Duration: minutes, hours Palpitations: No Edema: None Muscle aches with walking: None Resp Respiratory: Negative for SOB with activity, SOB at rest, SOB orthopnea\SOB lying down, paroxysmal nocturnal dyspnea or Cough GI GI: Negative nausea, heartburn, black,tarry stools or vomiting : Negative for hematuria Musc Musc: Negative for balance problems, muscle aches/ myalgia, muscle weakness or joint pain Skin Skin: Negative non-healing lesions, unusual bruising or rash Neuro Neuro: Positive for dizziness, lightheadedness, near syncope and other (New onset of dizziness that she says is constant); negative for weakness, frequent falls, headache(s), blurry vision, double vision, orthostatic symptoms, syncope or lack of coordination Dino Hematologic/Lymphatic: Negative for easy bruising or easy bleeding Endo Endo: Negative for fatigue, excessive sweating or increased thirst/drinking Psych Psych: Negative for anxiety or depression Allergy Allergy/Immunology: Negative for hives, Negative for rash Cardiology Exam Const Appearance: cooperative, healthy appearing, well developed, well groomed and no acute distress Nutritional Appearance: well nourished and average body habitus Orientation: alert, awake and oriented x3 Head Head: normal to inspection, normocephalic and atraumatic Ears: hearing grossly normal bilaterally and external ears normal Nose: external nose normal, nasal mucous membranes and turbinates normal, nares normal, septum normal, no nasal discharge Face and Sinus: face symmetric Mouth: oral mucosae normal, tongue normal, oropharynx normal and moist mucous membranes Teeth and gingiva: dentition normal Throat: posterior oropharynx normal, tonsils normal and uvula midline Eyes General: appearance normal, both eyes and all related structures Eyelids: eyelids normal Conjunctivae: conjunctivae normal Pupils: PERRL, normal by confrontation and accommodation normal EOM: EOM intact bilaterally Neck Neck: normal visual inspection, trachea midline and no JVD JVD: +5 Carotids: normal carotid upstroke and bounding pulses Chest Chest inspection: normal inspection of the chest, symmetric chest movement and normal respiratory effort Auscultation: Bilateral: Clear to Auscultation Cardio Palpation: normal PMI Rate: regular rate Rhythm: regular rhythm Heart sounds: S1 normal, S2 normal and normal, physiologic split S2; negative rub, gallop or murmur GI GI: normal to inspection, soft, no hepatosplenomegaly and bowel sounds present Neuro General: alert, awake, oriented x3, no focal sensory deficit, gait normal and moves all extremities Skin Skin: no rashes or lesions noted Extremities Pulses: Normal: Right Femoral Pulse, Left Femoral Pulse, Right Dorsalis Pedis Pulse, Left Dorsalis Pedis Pulse, Right Posterior Tibial Pulse, Left Posterior Tibial Pulse, Right Radial Pulse, Left Radial Pulse Lower Extremity Edema: None: Bilateral Musculoskel Musculoskeletal: No joint tenderness Psych Psychological: normal affect Assessment AND Plan 1. Chest pain, unspecified type R07.9 Plan Her chest pain appears to be atypical at this time my recommendation would be for us to perform a regular stress test to see what happens to her heart rate and whether the chest pain is reproducible. I strongly suspect that the above is noncardiac in etiology. Depending on the findings further recommendations will be made. Orders Orders: 2. Dizziness R42 Plan She does have borderline low blood pressure and this may be accounting for some of her dizziness. I would encourage her to increase her fluid intake as well as her salt intake. Hopefully this would improve some of her symptoms. At this juncture I would not suggest any other testing. I did review all her blood work that was performed and her hemoglobin was noted to be normal electrolytes were normal and TSH was also normal. Thank you for allowing me to participate in the care of your patient. 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) Coding Level of Care Code Off vis,new,level 3 Diagnoses Chest pain, unspecified type R07.9 Chest pain type: unspecified Dizziness R42 Coding Level of Care Code Off vis,new,level 3 Diagnoses Chest pain, unspecified type R07.9 Chest pain type: unspecified Dizziness R42 04/26/18 1500 <Electronically signed by José Luis Lo MD> Date José Luis Lo MD Cosigner Signature: Date (if applicable) CC: EDITH SILVER 12 LEAD EKG PERFORMED Observed: 04/26/2018 Status: F Source: [facility] 2:37 PM [facility] [place] [facility] [address] [place] [address] 12 Lead EKG performed by [facility] 04/26/18 1436 MR#: [id number] Acct: [id number] Name: ROXY NAYAK Rep #: [id number] : 1995 22 From: José Luis Lo MD Attending Dr: José Luis Lo MD Status: DEP AMB Ordering Dr: José Luis Lo MD Date: 04/26/18 [place] [facility] [place] Sex: F C Admitted: [facility]/12 Lead EKG performed by [facility] ECG Report Interpretation Sinus Bradycardia - occasional PAC # PACs = 1.WITHIN NORMAL LIMITSElectronically signed on 07/18/2018 at 16:23 by José Luis Lo Software Version [id number] 07/18/18 1630 Date José Luis Lo MD CC: EDITH SILVER Date Dictated: 04/26/181435 Date Transcribed: 04/26/181435 Mud Logger: CO Signed SINUS/FACIAL BONE Observed: 12/14/2017 Status: F Source: [facility] 6:23 PM [facility] [place] [facility] Services [address] [place] [id number] Sinus/Facial Bone MR#: [id number] Acct: [id number] Name: ROXY NAYAK Rep #: [id number] : 1995 F 22 From: Torres Bar MD PCP: Care Physician, No Primary Status: REG CLI Study: Sinus/Facial Bone Date of Exam: 12/14/17 Exam# [id number] Ordering Dr: Varun Cameron MD STUDY: CT MAXILLOFACIAL SINUSES REASON FOR EXAM: Female, 22 years old. Sinusitis. RADIATION DOSAGE (If Supplied By Facility): CTDIvol = ( 33.06 ) mGy, DLP = ( 854.51 ) mGycm TECHNIQUE: The patient was scanned in a multi detector CT scanner. High resolution axial imaging was performed without the administration of intravenous contrast material. Sagittal and coronal images were reconstructed. Individualized dose optimization techniques were used for this CT. COMPARISON: None. FINDINGS: FRONTAL SINUSES: Normal aeration, without mucosal inflammatory disease. ETHMOIDAL SINUSES: Normal aeration, without mucosal inflammatory disease. MAXILLARY SINUSES: Normal aeration, without mucosal inflammatory disease. SPHENOIDAL SINUSES: Normal aeration, without mucosal inflammatory disease. There is patency of the bilateral maxillary infundibuli with normal uncinate processes, ethmoid bullae, and hiatus semilunaris. Normal bilateral middle turbinates. Normal bilateral inferior turbinates. Normal midline nasal septum. There is patency of the bilateral nasal airways. The visualized osseous structures are normal. The visualized bilateral orbital contents are normal. CT/Sinus/Facial Bone IMPRESSION: Normal CT examination of the maxillofacial sinuses. Electronically Signed: Torres Bar MD at 21:41 EDT , Service support , CC: No Primary Care Physician; Jerry Cameron MD Mud Logger: Signed URGENT CARE VISIT Observed: 08/08/2017 Status: F Source: [facility] 11:26 AM [facility] [place] [facility] [address] [place] [address] [address] [place] [address] OFFICE VISIT Date of Service: 08/08/17 MR#: [id number] Acct: [id number] Name: ROXY NAYAK Rep #: [id number] : 1995 Provider: Justice SHARMA Age/Sex: 21/F Location: [facility] Status: Signed Intake Vital Signs08/08/17 Height 5 ft 1 in 08/08/17 Weight: 115 lb 08/08/17 Body Mass Index (BMI) 21.7 08/08/17 Blood Pressure 82/60 08/08/17 Blood Pressure Location Lt brachial 08/08/17 Blood Pressure Position Sitting Intake Visit Reasons: FLU, STREP Chief Complaint: fever, sore throat, myalgias, cough Allergies Sulfa (Sulfonamide Antibiotics) Adverse Reaction (Verified 04/25/17 16:24) Vomiting Medications No Known/Unobtainable [No Known Home Medications] 04/25/17 [History] PFSH Social History Smoking Status: Never smoker HPI HPI Chief Complaint: fever, sore throat, myalgias, cough Details: ROXY NAYAK, is a 21 F who presents to the office today for fever with a T-max of 101.0 Fahrenheit yesterday, as well as myalgias, sore throat, and dry cough. No complaints of chills, sweats, rash, chest pain/shortness of breath. She is a non-smoker. Patient notes that her sister who she lives with was diagnosed with influenza approximately 1 week ago. She notes no other associated symptoms and no other alleviating or aggravating factors. ROS Const Constitutional: Positive for fever(s) and body ache; no excessive sweating, abnormal sleep pattern, night sweats or chills Eyes Eyes: No change in vision ENT ENT: No abnormal hearing, ear pain, ear discharge, ear pressure, hearing loss, post nasal drip or sinus pressure Resp Respiratory: Positive for cough Cough: Yes non-productive; no chest congestion Cardio Cardiology: No excessive sweating, chest pain at rest, chest pain with exertion, shortness of breath, dyspnea on exertion, irregular heart rhythm, generalized swelling or leg pain with exertion Gastro GI: No abdominal pain, change in stool character or change in bowel habits Musc Musculoskeletal: No joint pain, back pain or limited range of motion Skin Skin: No change in hair or sores Neuro Neurology: No abnormal hearing, abnormal speech or abnormal movements Psych Psychiatric: No abnormal sleep pattern Endo Endocrine: No excessive sweating, change in body appearance, cold intolerance or heat intolerance Aller/Imm Allergy/Immunologic: No food intolerance Dino/Lymp Hematologic/Lymphatic: No easy bruising Exam Const General: cooperative, healthy appearing, no acute distress Nutritional Appearance: average body habitus Orientation: alert, awake, oriented x3 HENMT Head: normal to inspection Ears: hearing grossly normal bilaterally, external ears normal, TM's normal bilaterally, EAC's normal Nose: external nose normal, nares normal, septum normal, no nasal discharge (rapid-flu negative today) Face and sinus: normal facial exam, sinuses nontender, face symmetric Mouth: oral mucosae normal, lip normal, oropharynx normal, tongue normal Teeth and gingiva: dentition normal, gingiva normal Throat: no postnasal drainage, uvula midline, posterior oropharynx abnormal (faint erythema; rapid-strep negative today) Eyes General: appearance normal, both eyes and all related structures Neck Neck: normal visual inspection, full ROM, no lymphadenopathy, no meningeal signs, supple Neck mass: No Thyroid: thyroid normal Lymphatic: no lymphadenopathy noted Chest Chest palpation AND inspection: normal inspection of the chest Resp Effort AND Inspection: normal respiratory effort, able to speak in complete sentences, symmetric chest movement, no cough (No unsolicited cough appreciated during today's exam) Auscultation: Bilateral: Clear to Auscultation Cardio Palpation: normal PMI Rate: regular rate Rhythm: regular rhythm Heart Sounds: S1 normal, S2 normal, no gallops, no murmurs, no rubs Pulses: radial pulses present GI Inspection: normal to inspection Palpation: soft Skin General: no rashes or lesions noted Neuro General: alert, awake, oriented x3, gait normal Cognition: normal cognition Speech: speech normal Gait: normal gait Motor: muscle tone normal throughout Sensory Exam: no sensory deficits noted Extrem General: normal to inspection Psych Appearance: grossly normal Mental Status: mental status grossly normal Mood: congruent mood Affect: normal affect Speech and Movement: speech and movement normal Attitude: cooperative Thought Process: normal Thought Content: normal Judgment: judgment good Results BMSFLUAB Office Flu A AND B Negative FLU A AND B Last Edit by Tonya Motnes on 08/08/17 11:25 BMSRAPIDSTREPA Office Rapid Strep A Negative Last Edit by Tonya Montes on 08/08/17 11:25 Assessment AND Plan Problems 1. Pharyngitis J02.9 Plan Patient aware today's rapid strep and rapid flu test were both negative, therefore throat culture sent to lab for further evaluation. Clear fluids, rest, Advil/Tylenol as needed for symptomatic relief. Follow-up with PCP in 5 7 days should symptoms not improve, sooner should symptoms worsen or any other concerns develop. Patient states knowledge and understanding all the above. This note was generated with [employer] dictation software. It may contain incorrect words, spelling, and punctuation that were not noted in checking the note before signing. Orders Orders: Coding Level of Care Code Off vis,new,level 3 Diagnoses Pharyngitis J02.9 08/08/17 1126 <Electronically signed by Justice SHARMA> Date Justice SHARMA Cosigner Signature: Date (if applicable) CC: Observed: 08/08/2017 Status: F Source: VENUS CULTURE, R/O STREP A 11:15 AM [facility] [place] [facility] MIKE Culture No Group A Beta Streptococcus isolated. * This cultures intended use is to screen for Beta Streptococcus A only. All other pathogens and potential pathogens will not be screened for or reported. If a complete workup of all potential pathogens is indicated an order for a routine throat culture is required. Performed By: #### M100.010 #### [facility] [address] [place], [address] CNCO Observed: 07/27/2017 Status: COMPLETED Source: WYARNO 12:00 AM [facility] REPOSITORY Letter Text Dear Roxy Nayak: How to activate your [facility] [employer] Account 1. Visit the [employer] Signup page at [email or web address] 2. Identify yourself using your one-time use activation code: [email or web address] 3. Follow the on-screen prompts to choose your own secure username and password The following information will be necessary to access your account for the first time: Information needed for sign-up: Your custom activation code used one-time only for the initial account set-up. Your date of The last 4 digits of your social security number What to do next: Fill in the requested information on the Identify Yourself Form at [email or web address] , click Next. Create your login and password, choose a [employer] ID and password that will be easy for you to use, but impossible for anyone else to guess. Pick a security question that will assist you in the event you forget your password the next time you log-on. If you have difficulty activating your account, please call our [employer] helpline at [phone] or toll free at . We hope you enjoy using [employer]! Kindest Regards, [facility] [employer] Team ALLERGIES ALLERGIES DATE TYPE / CODE NAME / CODE REACTION SEVERITY SOURCE 07/19/2018 Drug Sulfa Vomiting Unknown [facility] Allergy/4160 (Sulfonamide Hospital [address]23(SNOMED Antibiotics)/ Repository CT) [id number](RX NORM) 08/19/2015 Drug SULFA GI UPSET [facility] Class/450107 (SULFONAMIDE [place] 003(SNOMED ANTIBIOTICS) Repository CT) ENCOUNTERS ENCOUNTERS ADMIT/DISCHARGE ACCOUNT ADMITTING ENCOUNTER LOCATION SOURCE NUMBER CLASS 07/19/2018/07/19/19 [id number] Emergency [place] [address] [facility] ing:ED Repository 07/12/2018/07/12/19 [id number] Ambulatory BMSBuilding:B [place] 19 MS.NOW [facility] Repository 05/08/2018 [id number] Ambulatory [facility] ing:[facility] Repository 05/08/2018 [id number] Ambulatory BMSBuilding:W [place] [facility] Repository 04/27/2018/04/28/20 [id number] Ambulatory [address] Repository 04/26/2018/04/26/20 [id number] Ambulatory BMSBuilding:B [place] 18 [facility] Repository 04/25/2018 [id number] Ambulatory BMSBuilding:B [place] MS.[facility] Repository 12/14/2017 [id number] Ambulatory [facility] ing:CT Repository 08/08/2017 [id number] Ambulatory [facility] ing:[facility] Repository 08/08/2017/08/08/19 [id number] Ambulatory BMSBuilding:B [place] 18 [facility] Repository PAYERS PAYERS ENCOUNTER GUARANTOR PAYER SUBSCRIBER SOURCE 07/19/2018 ORXY Hannah Primary Insurance:[facility] [place] [id number] [facility] SPRANGDOB: [address] [id number] [id number]: [phone]) Number: Repository [phone] () [id number] Date:0116-31-45LZ [facility] [address], [place] [address]CS: CHECK WEBSITE 07/19/2018 Secondary NOT GIVENUNK [place] Insurance:SELF PAY [facility] Number: Effective Repository Date:2018-07-19 07/12/2018 ROXY Hannah Primary [facility] [place] [id number] [facility] SPRANGDOB: [address] [id number] Hospital [address]Rze: [phone]) Number: Repository [phone] () [id number] Date:6894-05-49BJ [facility] [address]N, [place] [address]KE: CHECK WEBSITE 07/12/2018 Secondary NOT GIVENUNK [place] Insurance:SELF PAY [facility] Number: Effective Repository Date:2018-07-12 05/08/2018 ROXY Hannah Primary Insurance:[facility] [place] [id number] [facility] SPRANGDOB: [address] [id number] Hospital [address]Bgm: [phone]) Number: Repository [phone] () [id number] Date:0780-18-93NX [address], [place] [address]JT: CHECK WEBSITE 05/08/2018 Secondary NOT GIVENUNK [place] Insurance:SELF PAY [facility] Number: Effective Repository Date:2018-04-26 05/08/2018 ROXY Hannah Primary Insurance:[facility] [place] [id number] [facility] SPRANGDOB: [address] [id number] [facility] [address]Amz: [phone]) Number: Repository [phone] () [id number] Date:7538-46-70KN [address] [address], [place] [address]QL: CHECK WEBSITE 05/08/2018 Secondary NOT GIVENUNK [place] Insurance:SELF PAY [facility] Number: Effective Repository Date:2018-05-08 04/26/2018 ROXY Hannah Primary Insurance:[facility] Venus [id number] [facility] SPRANGDOB: [facility] [id number] Number: Repository [phone]: [phone]) [id number] [phone] () Date:0529-25-67YV [address] [address]YUPC[place]TM, [place] [address]AK: CHECK WEBSITE 04/26/2018 Secondary NOT GIVENUNK [place] Insurance:SELF PAY [facility] Number: Effective Repository Date:2018-04-26 04/25/2018 ROXY Hannah Primary Insurance:[facility] [place] [id number] [facility] SPRANGDOB: [address] [id number] Hospital [address]Xwt: [phone]) Number: Repository [phone] () [id number] Date:5782-96-23AL [address] [address]HRVXMFHD, [place] [address]XH: CHECK WEBSITE 04/25/2018 Secondary NOT GIVENUNK [place] Insurance:SELF PAY [facility] Number: Effective Repository Date:2018-04-25 12/14/2017 ROXY Hannah Primary Insurance:[facility] [place] [id number] [employer] SPRANGDOB: [address] [id number] Hospital [address]Xks: [phone]) Number: Repository [phone] () [id number] Date:5830-18-33JS [address] [address]CYIPQSR, [place] [address]JD: CHECK WEBSITE 12/14/2017 Secondary NOT GIVENUNK [place] Insurance:SELF PAY [facility] Number: Effective Repository Date:2017-12-06 08/08/2017 ROXY Hannah Primary Insurance:[facility] [place] [id number] [facility] SPRANGDOB: [address] [id number] Hospital [address]Suo: Number: Repository [phone] [id number] (HP) Date:2815-51-12UY [address] [address], [place] [address]LV: CHECK WEBSITE 08/08/2017 Secondary NOT GIVENUNK [place] Insurance:SELF PAY [facility] Number: Effective Repository Date:2017-08-08 08/08/2017 ROXY Hannah Primary Insurance:[facility] [place] [id number] [facility] [facility] SPRANGDOB: [address] [id number] [facility] [address]Wfz: Number: Repository [phone] [id number] (HP) Date:5101-43-14NH [address] [address]EQRJNIRDN, [place] [address]NQ: CHECK WEBSITE 08/08/2017 Secondary NOT GIVENUNK [place] Insurance:SELF PAY [facility] Number: Effective Repository Date:2017-08-08
== END 2018-07-19 14:37 | disposition home or self-care (01) ==
LOC: ED 13:20
PROVIDERS: Emergency Provider Emergency Medicine; Family Provider Physician Assistant; PCP Physician Assistant
DX: R10.30 Lower abdominal pain, unspecified (principal); M54.9 Dorsalgia, unspecified; R30.0 Dysuria; R35.0 Frequency of micturition; Z87.440 Personal history of urinary (tract) infections; Z97.5 Presence of (intrauterine) contraceptive device
CPT/HCPCS: 74176; 80053; 81001; 83605; 83690; 85025; 96360; 99283; J7030; A4216

== ENCOUNTER → 2018-11-06 | Outpatient (CLI) | payer OTHER, SELFPAY ==
[2018-11-06 09:53] VITALS: BMI 22.6
== END | disposition home or self-care (01) ==
LOC: LABSPEC 12:35
PROVIDERS: Family Provider Physician Assistant; PCP Physician Assistant; Referring Provider Nurse Practitioner Women's Health; Visit Provider Nurse Practitioner Women's Health
DX: N94.9 Unspecified condition associated with female genital organs and menstrual cycle (principal); R10.2 Pelvic and perineal pain
CPT/HCPCS: 87070; 87086; 87205

== ENCOUNTER → 2018-12-11 | Outpatient (CLI) | payer OTHER, SELFPAY ==
[2018-11-06 09:53] VITALS: BMI 22.6
[2018-12-11 15:26] LABS: hCG Titer Quant., Serum 3325 mIU/mL (1-3)
== END | disposition home or self-care (01) ==
LOC: PAVLAB 14:02
PROVIDERS: Family Provider Physician Assistant; PCP Physician Assistant; Referring Provider Nurse Practitioner Women's Health; Visit Provider Nurse Practitioner Women's Health
DX: O03.9 Complete or unspecified spontaneous abortion without complication (principal)
CPT/HCPCS: 36415; 84702

== ENCOUNTER → 2018-12-13 | Outpatient (CLI) | payer OTHER, SELFPAY ==
[2018-11-06 09:53] VITALS: BMI 22.6
[2018-12-13 12:52] LABS: hCG Titer Quant., Serum 5255 mIU/mL (1-3)
== END | disposition home or self-care (01) ==
LOC: PAVLAB 11:02
PROVIDERS: Nurse Practitioner Women's Health; Family Provider Physician Assistant; PCP Physician Assistant; Referring Provider Obstetrics & Gynecology; Visit Provider Obstetrics & Gynecology
DX: O03.9 Complete or unspecified spontaneous abortion without complication (principal)
CPT/HCPCS: 36415; 84702

== ENCOUNTER → 2018-12-14 | Outpatient (CLI) | payer OTHER, SELFPAY ==
[2018-11-06 09:53] VITALS: BMI 22.6
--- NOTE | 2018-12-14 13:58 | US_ITS ---
HISTORY: patient with cramping, assess viability COMPARISON: None. TECHNIQUE: Real-time transvaginal sonographic imaging of the pelvis was performed. # of images incl. paperwork: 53 FINDINGS: Number of intrauterine gestational sacs identified: 1. Gestational sac (size/shape): 1.03 cm. Ovoid and regular [place]-rump length: 0.23 cm. heart rate: 114 Beats per minute. Yolk sac: visualized. Ultrasound age is 5 weeks 6 days, and ultrasound KEN is 08/10/2019. LMP age is 5 weeks 1 day , and LMP KEN is 08/15/2019. No subchorionic hemorrhage. Amniotic Fluid: Qualitatively normal. Uterus: 8.6 x 6.5 x 3.9 cm. No focal myomas. Adnexa: Normal bilateral ovaries with physiologic follicles. No adnexal masses. Cul-de-sac: No free fluid. US/Transvaginal w/Preg US IMPRESSION: 1. Single live intrauterine with gestational age of 5 weeks 6 days with KEN of 08/10/2019. at 1650 Reported and signed by: Naveed De Los Santos MD Electronically Signed: Naveed De Los Santos MD at 16:49 EDT Tel , Service support ,
== END | disposition home or self-care (01) ==
LOC: OPUS 13:55
PROVIDERS: Family Provider Physician Assistant; PCP Physician Assistant; Referring Provider Obstetrics & Gynecology; Visit Provider Obstetrics & Gynecology
DX: O20.0 Threatened abortion (principal); Z3A.00 Weeks of gestation of pregnancy not specified
CPT/HCPCS: 76817

== ENCOUNTER → 2019-01-09 | Outpatient (CLI) | payer OTHER, SELFPAY ==
[2019-01-09 14:28] VITALS: BMI 22.6
[2019-01-09 21:02] LABS: Chlamydia Trachomatis by PCR Negative (Negative); Neisserai gonorrhoeae by PCR Negative (Negative); Probe Check PASS; Sample Adequacy Control PASS; Specimen Processing Control PASS
[2019-01-12 12:08] LABS: HPV Reflexed? NOT INDICATED
== END | disposition home or self-care (01) ==
PROVIDERS: Family Provider Physician Assistant; PCP Physician Assistant; Referring Provider Obstetrics & Gynecology; Visit Provider Obstetrics & Gynecology
DX: Z34.90 Encounter for supervision of normal pregnancy, unspecified, unspecified trimester (principal); Z12.4 Encounter for screening for malignant neoplasm of cervix
CPT/HCPCS: 87086; 87491; 87591; 87624; 88175; G0145

== ENCOUNTER 2019-01-20 16:40 | Emergency (ER) | payer OTHER, SELFPAY ==
[2019-01-09 14:28] VITALS: BMI 22.6
[2019-01-20 16:43] VITALS: BP 113/58; PULSE 50; RESP 16; TEMP 36.7; O2SAT 97; BMI 24.3
[2019-01-20] MEDS: 0.9% Normal Saline 1,000 ML 1000 ML IV (17:22)
[2019-01-20] MEDS: Ondansetron 4 MG/2 ML Vial IV (17:22)
[2019-01-20 17:33] LABS: Color, Urine Straw (Yellow); Glucose, Dipstick Normal (Normal); Ketone-Dipstick Negative (Negative); Leukocyte Esterase-Dipstick 500 /ul (Negative); Nitrite-Dipstick Negative (Negative); Occult Blood-Urine Negative /ul (Negative); Protein-Dipstick Negative (Negative); Red Blood Cells-Urine 0 SEEN /hpf (0-5); Urine Bilirubin Dipstick Negative (Negative); Urine Clarity Sl. Cloudy (Clear); Urine Urobilinogen Normal (Normal)
[2019-01-20 17:37] LABS: Absolute Neutrophil Count 6.3 X10^3/uL (2.0-7.7); Basophil# 0.02 X10^3/uL; Basophil% 0.2 % (0-1); Eosinophil# 0.06 X10^3/uL; Eosinophils% 0.7 % (0-5); Hematocrit 37.2 % (37-47); Hemoglobin 13.3 g/dL (12.0-15.0); Lymphocyte % 19.7 % (19-41); Mean Corp Hgb Conc 35.8 g/dL (32-36); Mean Corpuscular Hgb 31.5 pg (27.0-32.0); Mean Corpuscular Volume 88.2 fL (81-99); Mean Platelet Vol. 10.1 fl (6.2-12.0); Monocyte# 0.48 X10^3/uL; Monocyte% 5.6 % (0-10); NRBC Flagged by Analyzer 0 % (0-5); Neutrophil # 6.32 X10^3/uL (2.7-7.7); Neutrophil % 73.5 % (47-70); Platelet Count 184 K/mm3 (150-450); RBC Distribution Width CV 11.7 % (11.6-14.6); RBC Distribution Width SD 37.6 fl (35.1-43.9); Red Blood Count 4.22 M/mm3 (4.2-5.4); White Blood Count 8.6 K/mm3 (4.4-11.0)
[2019-01-20 17:39] LABS: Bacteria RARE /hpf (None Seen); Squamous Epithelial Cells - UA 0-5 SEEN /hpf (5-10); White Blood Cells 0-5 SEEN /hpf (0-5)
[2019-01-20 17:40] LABS: Amorphous Sediment 1+
[2019-01-20 17:55] LABS: ALB/GLOB Ratio 1.1 RATIO (0.9-2.4); AST(SGOT) 11 U/L (15-37); Alanine Aminotransfer ALT/SGPT 15 U/L (13-56); Albumin, Serum 3.4 g/dL (3.2-5.0); Alkaline Phosphatase 68 U/L (45-117); Anion Gap 8 (5-15); BUN 13 mg/dL (7-18); BUN/Creat Ratio 18.4 RATIO (10-20); Chloride 107 mmol/L (98-107); Creatinine, Serum 0.71 mg/dL (0.55-1.02); EST Glomerular Filtration Rate 110 mL/min (>60); Est Glom Filt Rate - Afr Amer 133 mL/min (>60); Estimated Creatinine Clearance 93.79 ml/min; Globulin 3.2 g/dL (2.2-4.2); Glucose 100 mg/dL (74-106); Lipase 270 U/L (73-393); Potassium 3.3 mmol/L (3.5-5.1); Protein, Total 6.6 g/dL (6.4-8.2); Sodium Level 138 mmol/L (136-145)
--- NOTE | 2019-01-20 18:44 | ED.VISSUMM ---
- ER Visit Summary Date of Service: 01/20/19 Chief Complaint: Right flank pain and abdominal pain History of Present Illness: The patient is a [address] Jaleel De La Cruz and Dr. Silver. She is a G2, P1 at 11 weeks 4 days. She reports that approximately 1 hour ago she had abrupt onset of right flank and right lower quadrant abdominal pain. It is a sharp, stabbing pain that is 10 to 10 hours and 5-10 currently. Is worsened by standing up. Is relieved by being on all fours. Has had nausea without vomiting. No diarrhea. Her last bowel movement was today. No melena hematochezia. She denies any dysuria or frequency. However she reports he does have the sensation of pressure to urinate. She denies any vaginal bleeding or discharge. She has never had anything like this before. Physical Examination: Vitals: Stable. Afebrile. General: Well-nourished and well-developed. Head: Normocephalic atraumatic. Neck: Supple, no lymphadenopathy. No JVD. Nontender. Cardiovascular: Regular rate and rhythm. No murmurs. Respiratory: No respiratory distress. Clear to auscultation bilaterally. Abdominal: Soft, mild right upper and right lower quadrant tenderness to palpation, nondistended, normal bowel sounds. No guarding, rebound, or peritoneal signs. Gravid uterus. Back: No CVA tenderness. Extremities: Nontender, no edema. Skin: Normal color, no rash. Neurologic: Alert and oriented ?3. Cranial nerves II through XII are intact. Normal strength and sensation. Psych: Normal affect. Test Results: CBC shows segmented neutrophils 74. Chem-7 shows potassium 3.3. LFTs showed AST of 11. Lipase is normal. UA is negative. There is no blood. Emergency Department Course and Treatment: Patient was given a dose of Zofran IV. She refused pain medications. I had a prolonged discussion with her about the likelihood that this is a kidney stone. Is a very atypical presentation for appendicitis. She denies any fatty food intolerance or biliary colic in the past. Bedside ultrasound showed good movement and heartbeat. Treatment Plan: Patient was discussed with Dr. Jaleel De La Cruz. I suspect that this is from a kidney stone. She will be discharged with a urine strainer, Percocet, and Zofran. Instructed to return to emerge department if she has not passed this in the next 3 to 4 days. Return to the emergency department for any worsening symptoms. Disposition: To home in improved and stable condition. Impression: 1. Right flank pain, acute. 2. First trimester . This note was generated with [employer] dictation software. It may contain incorrect words, spelling, and punctuation that were not noted in review of the chart prior to signing ED Disposition - Plan for ED Patient: Disposition: Home or Assisted Living Instructions: ABDOMINAL PAIN, Unknown Cause, (Female) Prescriptions: Oxycodone HCl/Acetaminophen [Percocet 5/325] 1 tab PO Q6H PRN PRN 3 Days #12 tab PRN Reason: Pain Prescription Printed Ondansetron [Zofran Odt] 4 mg PO Q8H PRN PRN #10 tab PRN Reason: Nausea Prescription Printed Referrals: Dimple Silver PA [Primary Care Provider] - 1-2 Days if not improving Angelica Peguero MD [STAFF PHYSICIAN] -
== END 2019-01-20 19:07 | disposition home or self-care (01) ==
LOC: ED 17:23
PROVIDERS: Emergency Provider Emergency Medicine; Family Provider Physician Assistant; PCP Physician Assistant
DX: O26.891 Other specified pregnancy related conditions, first trimester (principal); R10.31 Right lower quadrant pain; R11.0 Nausea; R51 Headache; Z3A.11 11 weeks gestation of pregnancy
CPT/HCPCS: 80053; 81001; 83690; 85025; 96361; 96374; 96375; 99285; J7030; J2405

== ENCOUNTER → 2019-01-24 | Outpatient (CLI) | payer OTHER, SELFPAY ==
[2019-01-24 15:07] VITALS: BMI 24.3
== END | disposition home or self-care (01) ==
LOC: LABSPEC 17:41
PROVIDERS: Family Provider Physician Assistant; PCP Physician Assistant; Visit Provider Nurse Practitioner Women's Health
DX: R30.0 Dysuria (principal)
CPT/HCPCS: 87086

== ENCOUNTER → 2019-02-06 | Outpatient (CLI) | payer OTHER, SELFPAY ==
[2019-02-06 15:50] VITALS: BMI 23.0
[2019-02-06 17:19] LABS: Absolute Lymphocyte Count 2.41 X10^3/uL (0.83-4.51); Basophil# 0.03 X10^3/uL; Basophil% 0.3 % (0-1); Eosinophil# 0.07 X10^3/uL; Eosinophils% 0.7 % (0-5); Hematocrit 37.8 % (37-47); Hemoglobin 13.1 g/dL (12.0-15.0); Lymphocyte # 2.41 X10^3/ul (4.0); Lymphocyte % 24.1 % (19-41); Mean Corp Hgb Conc 34.7 g/dL (32-36); Mean Corpuscular Hgb 30.8 pg (27.0-32.0); Mean Corpuscular Volume 88.7 fL (81-99); Mean Platelet Vol. 10.4 fl (6.2-12.0); Monocyte# 0.49 X10^3/uL; Monocyte% 4.9 % (0-10); NRBC Flagged by Analyzer 0 % (0-5); Neutrophil # 6.95 X10^3/uL (2.7-7.7); Neutrophil % 69.6 % (47-70); Platelet Count 191 K/mm3 (150-450); RBC Distribution Width CV 12.1 % (11.6-14.6); RBC Distribution Width SD 39.2 fl (35.1-43.9); Red Blood Count 4.26 M/mm3 (4.2-5.4)
[2019-02-06 18:37] LABS: HIV - WCH Non-Reactive (Nonreactive); Rubella IgG 72.5 IU/mL
[2019-02-09 01:38] LABS: Rapid Plasmin Reagin (RPR) NONREACTIVE (NONREACTIVE)
== END | disposition home or self-care (01) ==
PROVIDERS: Family Provider Physician Assistant; PCP Physician Assistant; Referring Provider Obstetrics & Gynecology; Visit Provider Obstetrics & Gynecology
DX: Z34.90 Encounter for supervision of normal pregnancy, unspecified, unspecified trimester (principal); N89.8 Other specified noninflammatory disorders of vagina
CPT/HCPCS: 36415; 85025; 86592; 86703; 86762; 86850; 86900; 86901; 87070; 87205

== ENCOUNTER → 2019-03-16 13:49 | Outpatient (CLI) | payer OTHER, SELFPAY ==
[2019-03-08 15:12] VITALS: BMI 23.0
--- NOTE | 2019-03-16 13:50 | US_ITS ---
STUDY: SECOND AND THIRD TRIMESTER OBSTETRICAL ULTRASOUND REASON FOR EXAM: Female, 23 years old anatomic scan LMP: 10/31/2018 TECHNIQUE: Transabdominal TECHNICAL QUALITY: Adequate. PRIOR ULTRASOUND: 12/14/2018 FINDINGS: There is a single intrauterine fetus. The fetus is in a cephalic presentation. There is demonstrated cardiac activity with a heart rate of 145 bpm. There is a normal amniotic fluid volume. The largest amniotic fluid pocket measures 3 x 6 cm. The placenta is posterior in location and is not low lying. There are Grade 0 placental changes. The cervix measures 3.3 cm in length. The adnexal regions are not visualized. There is a hypoechoic avascular area along the surface of the placenta measuring approximately 1.3 x 2.1 cm which may represent a chorionic plate cyst. BIOMETRY: BPD: 4.4 cm: 19 weeks, 3 days HC: 16.5 cm: 19 weeks, 2 days AC: 13.8 cm: 19 weeks, 2 days FL: 2.9 cm: 18 weeks, 6 days CI: 79 FL/BPD: 65 FL/AC: 21 HC/AC: 1.2 age by current US: 19 weeks, 2 days. KEN by current US: 08/08/2019. Estimated weight: 271 grams, +/- 40 grams, 25 %. KEN by prior US: 08/10/2019. Age by LMP: 19 weeks, 3 days. KEN by LMP: 08/07/2019. ANATOMY: Gender: Female Cranium: Normal lateral ventricles. Normal choroid plexus. Normal cerebellum. Normal cisterna magna. Normal face, nose and lips. Chest: Normal 4-chamber heart. Abdomen/Pelvis: Normal diaphragm. Normal stomach. Normal abdominal wall. Normal cord insertion. Normal 3 vessel cord. Normal kidneys. Normal bladder. Spine: Normal cervical spine. Normal thoracic spine. Normal lumbar spine. Normal sacrum. Extremities: Normal bilateral upper extremities. Normal bilateral lower extremities. US/OB Anatomy Scan IMPRESSION: Single live intrauterine vertex presentation 19 week 2 day gestation with an KEN of 08/08/2019 and appropriate interval growth. Posterior placenta grade 0, not low-lying, no abruption. Possible chorionic plate cyst. Normal amniotic fluid volume by inspection. Cervix length 3.3 cm, closed internal cervical os. Normal anatomic review on submitted images. Electronically Signed: Jacey Beltrán MD at 4:25 EDT , Service support ,
== END ==
PROVIDERS: Family Provider Physician Assistant; PCP Physician Assistant; Referring Provider Obstetrics & Gynecology; Visit Provider Obstetrics & Gynecology
DX: Z34.90 Encounter for supervision of normal pregnancy, unspecified, unspecified trimester (principal)
CPT/HCPCS: 76805

== ENCOUNTER → 2019-04-19 09:06 | Outpatient (CLI) | payer OTHER, SELFPAY ==
[2019-03-08 15:12] VITALS: BMI 23.0
[2019-04-12 10:55] VITALS: BMI 23.0
--- NOTE | 2019-04-19 09:08 | US_ITS ---
STUDY: SECOND AND THIRD TRIMESTER OBSTETRICAL ULTRASOUND REASON FOR EXAM: Female, 23 years old growth. LMP: October 31, 2018. TECHNIQUE: Transabdominal TECHNICAL QUALITY: Adequate. PRIOR ULTRASOUND: Comparison is made with prior study dated March 16, 2019. FINDINGS: There is a single intrauterine fetus. The fetus is in a cephalic presentation. There is demonstrated cardiac activity with a heart rate of 147 bpm. There is a normal amniotic fluid volume. The largest amniotic fluid pocket measures 3.4 cm. The amniotic fluid index (PRICILA) is 12.0 cm. The placenta is posterior in location and is not low lying. There are Grade 1 placental changes. The cervix measures 3.4 cm in length. The adnexal regions are not visualized. BIOMETRY: BPD: 6.0 cm: 24 weeks, 4 days HC: 22.5 cm: 24 weeks, 3 days AC: 19.1 cm: 23 weeks, 6 days FL: 4.1 cm: 23 weeks, 0 days CI: 76.9 FL/BPD: 67 FL/HC: FL/AC: 21.1 HC/AC: 1.2 age by current US: 24 weeks, 0 days. KEN by current US: August 09, 2019. Estimated weight: 617 grams, +/- 91 grams, 14.2 %. age by prior US: 24 weeks, 1 days. KEN by prior US: August 08, 2019. Age by LMP: 24 weeks, 2 days. KEN by LMP: August 07, 2019. US/OB Limited With Biometrics IMPRESSION: Single live uterine gestation with a mean gestational age of 24 weeks and 1 day. The measurements obtained today following within the normal expected range. Electronically Signed: Sam Torres, at 14:14 EDT , Service support ,
== END ==
PROVIDERS: Family Provider Physician Assistant; PCP Physician Assistant; Referring Provider Obstetrics & Gynecology; Visit Provider Obstetrics & Gynecology
DX: O43.192 Other malformation of placenta, second trimester (principal); Z3A.00 Weeks of gestation of pregnancy not specified
CPT/HCPCS: 76816

== ENCOUNTER 2019-05-01 12:35 | Outpatient (CLI) | payer OTHER, SELFPAY ==
[2019-04-12 10:55] VITALS: BMI 23.0
[2019-05-01 13:00] VITALS: BMI 23.7
[2019-05-01 13:22] LABS: Color, Urine Yellow (Yellow); Glucose, Dipstick Normal (Normal); Ketone-Dipstick Negative (Negative); Leukocyte Esterase-Dipstick 100 /ul (Negative); Nitrite-Dipstick Negative (Negative); Occult Blood-Urine Negative /ul (Negative); Protein-Dipstick Negative (Negative); Urine Bilirubin Dipstick Negative (Negative); Urine Clarity Sl. Cloudy (Clear); Urine Urobilinogen Normal (Normal)
[2019-05-01 13:51] LABS: Fetal Fibronectin Negative
--- NOTE | 2019-05-02 08:28 | OB.TRI.PN ---
Progress Notes Date of Service: 05/01/19 Progress Note: Patient presents for triage evaluation secondary to bleeding and crmaping FHT: 150 Moderate variability no decelerations GA appropriate [place]: no regular Contractions Assessment and plan: vaginal bleeding , cervix closed no ctx, reassuring maternal and status patient discharged to home to follow-up as scheduled See problem list details for additional plan information. Laboratory Studies: Laboratory Tests 05/01/19 05/01/19 Range/Units 12:54 12:54 Urine Color Yellow (Yellow) Urine Clarity Sl. Cloudy (Clear) Urine pH 7.0 (5.0 - 8.0) Ur Specific [place] 1.010 (1.002-1.030) Urine Protein Negative (Negative) mg/dl Urine Glucose (UA) Normal (Normal) mg/dl Urine Ketones Negative (Negative) mg/dl Urine Occult Blood Negative (Negative) /ul Urine Nitrite Negative (Negative) Urine Bilirubin Negative (Negative) mg/dL Urine Urobilinogen Normal (Normal) mg/dl Ur Leukocyte Esterase 100 H (Negative) /ul Fibronectin Negative Multi Select Codes - Urinary/Genital Urinary/Genital CPT Codes: Other Procedure See Report - no charge report visit
== END 2019-05-01 14:05 | disposition home or self-care (01) ==
LOC: WPOUT 12:42 → WP 12:43
PROVIDERS: Family Provider Physician Assistant; PCP Physician Assistant; Referring Provider Obstetrics & Gynecology; Visit Provider Obstetrics & Gynecology
DX: O46.90 Antepartum hemorrhage, unspecified, unspecified trimester (principal); Z3A.00 Weeks of gestation of pregnancy not specified
CPT/HCPCS: 59025; 59050; 81002; 82731; 99218; G0378

== ENCOUNTER → 2019-05-09 14:07 | Outpatient (CLI) | payer OTHER, SELFPAY ==
[2019-05-09 14:00] VITALS: BMI 23.7
[2019-05-09 14:55] LABS: Absolute Lymphocyte Count 1.75 X10^3/uL (0.83-4.51); Absolute Neutrophil Count 6.7 X10^3/uL (2.0-7.7); Basophil# 0.03 X10^3/uL; Basophil% 0.3 % (0-1); Eosinophil# 0.07 X10^3/uL; Eosinophils% 0.8 % (0-5); Hematocrit 35.4 % (37-47); Hemoglobin 12.1 g/dL (12.0-15.0); Lymphocyte # 1.75 X10^3/ul (4.0); Lymphocyte % 19.6 % (19-41); Mean Corp Hgb Conc 34.2 g/dL (32-36); Mean Corpuscular Volume 90.8 fL (81-99); Monocyte% 4.5 % (0-10); NRBC Flagged by Analyzer 0 % (0-5); Neutrophil # 6.65 X10^3/uL (2.7-7.7); Neutrophil % 74.4 % (47-70); Platelet Count 181 K/mm3 (150-450); RBC Distribution Width CV 12.4 % (11.6-14.6); RBC Distribution Width SD 40.9 fl (35.1-43.9); White Blood Count 8.9 K/mm3 (4.4-11.0)
[2019-05-09 15:28] LABS: Glucose Challenge Gest 1H 50g 192 mg/dL (70-140)
[2019-05-09 15:54] LABS: Hepatitis B Surface Antigen Non-Reactive (Nonreactive)
== END ==
PROVIDERS: Nurse Practitioner Women's Health; Family Provider Physician Assistant; PCP Physician Assistant; Referring Provider Obstetrics & Gynecology; Visit Provider Obstetrics & Gynecology
DX: Z34.90 Encounter for supervision of normal pregnancy, unspecified, unspecified trimester (principal)
CPT/HCPCS: 36415; 82950; 85025; 87340

== ENCOUNTER → 2019-05-16 07:00 | Outpatient (CLI) | payer OTHER, SELFPAY ==
[2019-05-09 14:00] VITALS: BMI 23.7
[2019-05-16 08:21] LABS: Glucose GTT-Gestation. Fasting 70 mg/dL (<105)
[2019-05-16 10:02] LABS: Glucose GTT-Gestational 2 Hr 96 mg/dL (<165)
[2019-05-16 10:19] LABS: Glucose GTT-Gestational 1 Hr 120 mg/dL (<190)
[2019-05-16 10:44] LABS: Glucose GTT-Gestational 3 Hr 75 L (<145)
== END ==
PROVIDERS: Family Provider Physician Assistant; PCP Physician Assistant; Referring Provider Nurse Practitioner Women's Health; Visit Provider Nurse Practitioner Women's Health
DX: Z34.90 Encounter for supervision of normal pregnancy, unspecified, unspecified trimester (principal); O99.810 Abnormal glucose complicating pregnancy; Z3A.00 Weeks of gestation of pregnancy not specified
CPT/HCPCS: 36415; 82951; 82952

== ENCOUNTER → 2019-07-12 17:09 | Outpatient (CLI) | payer OTHER, SELFPAY ==
[2019-07-12 10:30] VITALS: BMI 23.7
== END ==
PROVIDERS: PCP Physician Assistant; Referring Provider Obstetrics & Gynecology; Visit Provider Obstetrics & Gynecology
DX: Z34.90 Encounter for supervision of normal pregnancy, unspecified, unspecified trimester (principal)
CPT/HCPCS: 87081

== ENCOUNTER → 2019-08-02 16:12 | Outpatient (CLI) | payer OTHER, SELFPAY ==
[2019-08-02 08:59] VITALS: BMI 23.7
--- NOTE | 2019-08-02 16:29 | US_ITS ---
STUDY: SECOND AND THIRD TRIMESTER OBSTETRICAL ULTRASOUND-LIMITED REASON FOR EXAM: Female, 23 years old size/date discrepancy LMP: 10/31/2018 TECHNIQUE: Transabdominal TECHNICAL QUALITY: Adequate. PRIOR ULTRASOUND: 04/19/2019 FINDINGS: There is a single intrauterine fetus. The fetus is in a cephalic presentation. There is demonstrated cardiac activity with a heart rate of between 132 and 156 bpm. There is a normal amniotic fluid volume. The largest amniotic fluid pocket measures 4.2 cm. The amniotic fluid index (PRICILA) is 10.4 cm. The placenta is posterior in location and is not low lying. There are Grade 1 placental changes. The cervix was not measured BIOMETRY: BPD: 9.22 cm: 37 weeks, 4 days HC: 34.13 cm: 39 weeks, 3 days AC: 33.53 cm: 37 weeks, 4 days FL: 7.11 cm: 36 weeks, 4 days age by current US: 37 weeks, 6 days. KEN by current US: 08/17/2019. Estimated weight: 3200 grams, +/- 467 grams, 26 %. age by prior US: 24 weeks, 0 days. KEN by prior US: 08/09/2019. Age by LMP: 39 weeks, 2 days. KEN by LMP: 08/07/2019. US/OB Limited With Biometrics IMPRESSION: Single live intrauterine at 37 weeks, 6 days by current ultrasound with KEN of 08/17/2019. Heart rate between 133 and 156 bpm. No suspicious sonographic findings, normal growth noted since the previous study with KEN on current study 8 days later than on previous exam Electronically Signed: Reggie Carmen MD at 8:36 EST , Service support ,
--- NOTE | 2019-08-08 23:10 | HP.PCM_ITS ---
- Problem List (1) SROM (spontaneous rupture of membranes) Status: Acute (2) Influenza B Status: Acute Comment: diagnosed on 08/06/19 (3) Abnormal glucose affecting Status: Acute Comment: Normal 3gtt (4) General counselling and advice on contraception Status: Acute Comment: IUD 6 wk pp-no prior auth needed (5) Status: Acute Qualifiers: Comment: carrier and NIPT and NTD screening declined. anatomy nl, OB limited normal (6) Supervision of normal Status: Acute Qualifiers: Comment: PRR KEN 08/07/19 girl PC Vicky Frantz History Date of Admission: 08/08/19 Final KEN: 08/07/19 Gestational age: 40 Weeks and 1 Days History of this : This is a 23 year-old, at 40w1d weeks gestational age presents IAL with SROM clear lfuid, recently diagnosed with flu. she denies any vb admits good fm, regular ctx for the last few hours Medical History: Medical History (Last Updated 08/07/19 @ 09:16 by Celeste Rene) (Acute) Z34.90 carrier and NIPT and NTD screening declined. anatomy nl, OB limited normal Supervision of normal (Acute) Z34.90 PRR KEN 08/07/19 girl PC Vicky Frantz Family history of coronary artery disease (Resolved) Z82.49 Placental cyst affecting (Resolved) O43.199 Repeat US in 4 weeks Surgical History: Surgical History (Last Reviewed 08/06/19 @ 13:46 by Jonathan Murcia) History of tooth extraction K08.409 Allergies Sulfa (Sulfonamide Antibiotics) Adverse Reaction (Verified 08/08/19 19:40) Vomiting Smoking Status: Never smoker Alcohol: None Number of Fetus(es): 1 NST - FHR Rate Baby A Baseline: 120 Variability:: Moderate Accelerations:: 15 x 15 Decelerations:: None NST Reactive:: Yes FHR Category:: Category I Uterine Activity:: q4-5 History Past Pregnancies: Past Pregnancies Pregancy History 2 Elective abortions Hx Para 1 Spontaneous abortions Hx # Term Pregnancies Ectopic pregnancies Hx # Pregnancies Multiple births # of living children Past Pregnancies Del. Date Name GA/Weeks Outcome Route Bth Weight Infant Gen Labor Lgth Anesthesia Del Locatn Provider FOB 10/22/16 Vicky live - full term N [facility] Dr Chang Labs: Mom's Current Diagnoses Uterine size-date discrepancy, unspecified trimester 08/02/19 37 weeks gestation of 08/02/19 Social History Alleged father Frantz Hx Smoking No Smoking Status Never smoker Expected Delivery Method: Spontaneous Vaginal Review of Systems Constitutional: Denies: Fever, Malaise Eyes: Denies: Blurred vision, Vision Change HEENT: Denies: Head Aches, Visual Changes Cardiovascular: Denies: Chest Pain, Palpitations Respiratory: Denies: Cough, Shortness of Breath, Wheezing Gastrointestinal: Denies: Abdominal Pain, Diarrhea, Nausea, Vomiting Genitourinary: Denies: Dysuria, Hematuria Musculoskeletal: Denies: Joint Pain, Muscle pain Skin: Denies: Lesions, Rash Neurological: Denies: Blurred vision, Focal weakness, Headaches Psychiatric: Denies: Anxiety, Depression Endocrine: Denies: Heat/ Cold Intolerance Hematologic/ Lymphatic: Denies: Easy Bruising, Easy Bleeding Physical Exam General: Alert, Cooperative, No apparent distress HEENT: Atraumatic, Normocephalic. Negative for: Thyromegaly, Lymphadenopathy Cardiovascular: Regular rate Lungs: Normal air movement Abdomen: Soft, Non Tender, Gravid Neurological: Deep Tendon Reflexes 2+/4 and Symmetrical, Neuro grossly intact. Negative for: Clonus CELL POURER: Normal external genitalia. Negative for: Vulvar lesions Estimated gestational size: Appropriate for gestational size Presentation: Cephalic Cervix Dilation (cm): 4.5 Assessment/Plan All Active Problems (Last Updated 08/07/19 @ 09:16 by Celeste Rene) SROM (spontaneous rupture of membranes) (Acute) Influenza B (Acute) Abnormal glucose affecting (Acute) General counselling and advice on contraception (Acute) (Acute) Supervision of normal (Acute) Chest pain (Resolved) Cystitis (Resolved) Dizziness (Resolved) Family history of coronary artery disease (Resolved) Placental cyst affecting (Resolved) Pre-syncope (Resolved) This is a 23 year-old, , at 40 weeks gestational age presents SROM IAL. Patient presents IAL, plan expectant management for , pitocin if needed. Pain management: plans epidural. GBS negative. Management of any complications: none I have reviewed the [facility] and made any clinically relevant updates.
== END ==
PROVIDERS: PCP Physician Assistant; Referring Provider Obstetrics & Gynecology; Visit Provider Obstetrics & Gynecology
DX: O26.849 Uterine size-date discrepancy, unspecified trimester (principal); Z3A.37 37 weeks gestation of pregnancy
CPT/HCPCS: 76816

== ENCOUNTER 2019-08-08 20:15 | Inpatient (IN) | payer OTHER, SELFPAY ==
[2019-08-06 13:46] VITALS: BMI 23.7
[2019-08-08 19:35] VITALS: BMI 24.8
[2019-08-08 20:11] LABS: ROM Internal Control Test YES-OK TO RESULT pt. (Internal QC); ROM Patient Test POSITIVE (Negative)
[2019-08-08] MEDS: Lactated Ringers 1,000 ML 50 ML IV (20:25)
[2019-08-08 20:45] LABS: Absolute Lymphocyte Count 1.32 X10^3/uL (0.83-4.51); Absolute Neutrophil Count 4.1 X10^3/uL (2.0-7.7); Basophil# 0.02 X10^3/uL; Basophil% 0.3 % (0-1); Eosinophil# 0.01 X10^3/uL; Eosinophils% 0.2 % (0-5); Hematocrit 35.6 % (37-47); Hemoglobin 12.1 g/dL (12.0-15.0); Lymphocyte # 1.32 X10^3/ul (4.0); Lymphocyte % 22.3 % (19-41); Mean Corpuscular Hgb 29.8 pg (27.0-32.0); Mean Corpuscular Volume 87.7 fL (81-99); Mean Platelet Vol. 10.2 fl (6.2-12.0); Monocyte# 0.42 X10^3/uL; Monocyte% 7.1 % (0-10); NRBC Flagged by Analyzer 0 % (0-5); Neutrophil # 4.14 X10^3/uL (2.7-7.7); Neutrophil % 69.9 % (47-70); Platelet Count 173 K/mm3 (150-450); RBC Distribution Width CV 12.6 % (11.6-14.6); RBC Distribution Width SD 40.6 fl (35.1-43.9); Red Blood Count 4.06 M/mm3 (4.2-5.4); White Blood Count 5.9 K/mm3 (4.4-11.0)
[2019-08-08] MEDS: Lactated Ringers 500 ML 999 ML IV (22:39)
[2019-08-08] MEDS: fentaNYL-bupivacaine (epidural) 100 ML BAG EPIDURAL (23:58)
[2019-08-09] MEDS: Lactated Ringers 500 ML 999 ML IV (00:57)
--- NOTE | 2019-08-09 00:59 | NURSING ---
scanner not working to scan in meds. this RN verifying pt name and date and MRN prior to administration. pt in contact precautions.
[2019-08-09] MEDS: Amnioinfusion- 0.9% NS 1,000 ML IV.SOLN. INTRA-UTER (03:04)
[2019-08-09] MEDS: Lactated Ringers 1,000 ML 200 ML IV (05:17)
[2019-08-09] MEDS: fentaNYL-bupivacaine (epidural) 100 ML BAG EPIDURAL (06:16)
[2019-08-09] MEDS: DiphenhydrAMINE 50 MG/ML Syringe IV (06:49)
[2019-08-09] MEDS: Oxytocin 30 units/NS 500 ml 30 UNITS/500 ML IV.SOLN IV (08:03)
[2019-08-09] MEDS: Oxytocin 30 units/NS 500 ml 30 UNITS/500 ML IV.SOLN 334 UNITS IV (09:20)
--- NOTE | 2019-08-09 09:32 | PCM.HP.OB ---
- Problem List (1) SROM (spontaneous rupture of membranes) Status: Acute (2) Influenza B Status: Acute Comment: diagnosed on 08/06/19 (3) Abnormal glucose affecting Status: Acute Comment: Normal 3gtt (4) General counselling and advice on contraception Status: Acute Comment: IUD 6 wk pp-no prior auth needed (5) Status: Acute Qualifiers: Comment: carrier and NIPT and NTD screening declined. anatomy nl, OB limited normal (6) Supervision of normal Status: Acute Qualifiers: Comment: PRR KEN 08/07/19 girl PC Vicky Frantz History Date of Admission: 08/08/19 Final KEN: 08/07/19 Gestational age: 40 Weeks and 2 Days History of this : This is a 23 year-old, at 40 weeks gestational age in active labor with spontaneous rupture of membranes. Patient was diagnosed with influenza the day prior but had symptoms for more than 3 days and therefore she was not given Tamiflu. Symptoms are improving and she just has a persistent cough but has been afebrile for several days. Medical History: Medical History (Last Updated 08/07/19 @ 09:16 by Celeste Rene) (Acute) Z34.90 carrier and NIPT and NTD screening declined. anatomy nl, OB limited normal Supervision of normal (Acute) Z34.90 PRR KEN 08/07/19 girl PC Vicky Frantz Family history of coronary artery disease (Resolved) Z82.49 Placental cyst affecting (Resolved) O43.199 Repeat US in 4 weeks Surgical History: Surgical History (Last Reviewed 08/06/19 @ 13:46 by Jonathan Murcia) History of tooth extraction K08.409 Allergies Sulfa (Sulfonamide Antibiotics) Adverse Reaction (Verified 08/08/19 19:40) Vomiting Smoking Status: Never smoker Alcohol: None Number of Fetus(es): 1 NST - FHR Rate Baby A Baseline: 130 Variability:: Moderate Accelerations:: 15 x 15 NST Reactive:: Yes FHR Category:: Category I Uterine Activity:: Every 3 to 5 History Past Pregnancies: Past Pregnancies previous cervical laceration and repair Labs: Laboratory Results 08/08/19 08/08/19 08/08/19 19:40 20:25 20:25 WBC 5.9 RBC 4.06 L Hgb 12.1 Hct 35.6 L MCV 87.7 MCH 29.8 Course Did the patient receive Yes care? Current Obstetrical History Gestational Diabetes No Incompetent Cervix No Infertility No IUGR No Macrosomia No Hypertension/Pre-eclampsia No Placenta Previa/Abruption No PTL/PROM No Uterine anomaly No Oligohydramnios No Polyhydramnios No Multiple gestation No Past Medical History Asthma No Diabetes No Hypertension No Heart disease No Mitral valve prolapse No Neurologic/Seizure disorder/ No Migraines Kidney disease No Liver disease No Varicosities No Clotting disorders/Hx of DVT No Thyroid Dysfunction No Other medical diseases No Psychiatric disorders No Major trauma No Abnormal PAP smear No Sleep apnea No Mammogram in the last 2 years No Social History Marital Status: Alleged father George Hx Smoking No Smoking Status Never smoker How long have you used n/a substances (years)? MCHC 34.0 RDW Std Deviation 40.6 RDW Coeff of Hipolito 12.6 Plt Count 173 MPV 10.2 Immature Gran % (Auto) 0.200 Neut % (Auto) 69.9 Lymph % (Auto) 22.3 Bartholomew % (Auto) 7.1 Eos % (Auto) 0.2 Baso % (Auto) 0.3 Absolute Neuts (auto) 4.1 Absolute Lymphs (auto) 1.32 Nucleated RBC % 0 Vag Amniotic Fld Detect POSITIVE H Blood Type O POSITIVE Antibody Screen NEGATIVE Expected Infant Delivery Method: Spontaneous Vaginal Review of Systems Constitutional: Denies: Fever, Malaise Eyes: Denies: Blurred vision, Vision Change HEENT: Denies: Head Aches, Visual Changes Cardiovascular: Denies: Chest Pain, Palpitations Respiratory: Denies: Cough, Shortness of Breath, Wheezing Gastrointestinal: Denies: Abdominal Pain, Diarrhea, Nausea, Vomiting Genitourinary: Denies: Dysuria, Hematuria Musculoskeletal: Denies: Joint Pain, Muscle pain Skin: Denies: Lesions, Rash Neurological: Denies: Blurred vision, Focal weakness, Headaches Psychiatric: Denies: Anxiety, Depression Endocrine: Denies: Heat/ Cold Intolerance Hematologic/ Lymphatic: Denies: Easy Bruising, Easy Bleeding Physical Exam General: Alert, Cooperative, No apparent distress HEENT: Atraumatic, Normocephalic. Negative for: Thyromegaly, Lymphadenopathy Cardiovascular: Regular rate Lungs: Normal air movement Abdomen: Soft, Non Tender, Gravid Neurological: Deep Tendon Reflexes 2+/4 and Symmetrical, Neuro grossly intact. Negative for: Clonus [employer]TE[employer]CE [employer]PER[employer]OR: Normal external genitalia. Negative for: Vulvar lesions Estimated gestational size: Appropriate for gestational size Presentation: Cephalic Assessment/Plan All Active Problems (Last Updated 08/07/19 @ 09:16 by Celeste Rene) SROM (spontaneous rupture of membranes) (Acute) Influenza B (Acute) Abnormal glucose affecting (Acute) General counselling and advice on contraception (Acute) (Acute) Supervision of normal (Acute) Chest pain (Resolved) Cystitis (Resolved) Dizziness (Resolved) Family history of coronary artery disease (Resolved) Placental cyst affecting (Resolved) Pre-syncope (Resolved) This is a 23 year-old, , at 40 weeks gestational age presents IAL SROM. plan exp management plan epidural gbs neg, partial quarantine and contact precautions due to influenza
--- NOTE | 2019-08-09 09:36 | OP.PCM_ITS ---
Problem List (1) SROM (spontaneous rupture of membranes) Status: Acute (2) Influenza B Status: Acute Comment: diagnosed on 08/06/19 (3) Abnormal glucose affecting Status: Acute Comment: Normal 3gtt (4) General counselling and advice on contraception Status: Acute Comment: IUD 6 wk pp-no prior auth needed (5) Status: Acute Qualifiers: Comment: carrier and NIPT and NTD screening declined. anatomy nl, OB limited normal (6) Supervision of normal Status: Acute Qualifiers: Comment: PRR KEN 08/07/19 girl PC Vicky Frantz Vaginal Delivery Maternal Presentation: Active Labor ial srom Amniotic Membrane Rupture Type: Spontaneous at home Amniotic Fluid Description: Clear Final KEN: 08/07/19 Gestational age: 40 Weeks and 2 Days Date of Procedure: 08/09/19 Pre-Operative Diagnosis: ial Post-Operative Diagnosis: same Surgery/ Procedure Performed: Spontaneous Vaginal Delivery Type of Anesthesia: Epidural Description of Procedure: Patient began pushing and delivered the head in the XIMENA presentation. The head was delivered atraumatically. The anterior and posterior shoulders delivered without complication followed by the rest of the infant and the infant was placed on the maternal abdomen. Delayed cord clamping was employed for approximately 60 seconds. Cord was clamped and cut and gentle traction was applied to the cord and the placenta delivered spontaneously immediately following it was noted to be intact with three-vessel cord. The perineum and vagina were inspected and noted to have no laceration. EBL was 200 cc. Patient and infant tolerated delivery well. Presentation: XIMENA Placental Delivery Description: Spontaneous Cord Vessel Description: 3 Vessels Cord Entanglement: None Estimated Blood Loss: 200 Infant A gender: Female (1 minute): 8 (5 minute): 9 Episiotomy Description: None Laceration: None Medications given after delivery: IV Pitocin Complications: None Multi Select Codes - Urinary/Genital Urinary/Genital CPT Codes: 80614 Vaginal Delivery [facility]
[2019-08-09] MEDS: Naproxen 250 MG Tablet 500 MG PO ×2 (11:25→20:05)
[2019-08-09] MEDS: Acetaminophen 500 MG Tablet 1000 MG PO (15:25)
[2019-08-09 16:00] VITALS: BP 96/51; PULSE 90; RESP 16; TEMP 37
[2019-08-09 20:08] VITALS: BP 100/55; PULSE 86; RESP 16; TEMP 36.8; O2SAT 97
[2019-08-10 00:16] VITALS: BP 101/54; PULSE 68; RESP 16; TEMP 36.5
[2019-08-10] MEDS: Acetaminophen 500 MG Tablet 1000 MG PO ×2 (04:15→14:15)
[2019-08-10 04:17] VITALS: BP 108/60; PULSE 72; RESP 16; TEMP 36.6
[2019-08-10 08:02] VITALS: BP 106/51; PULSE 64; RESP 18; TEMP 36.3
[2019-08-10] MEDS: Naproxen 250 MG Tablet 500 MG PO ×2 (08:29→17:18)
--- NOTE | 2019-08-10 08:40 | PCM.PN.OB ---
Subjective: doing well no complaints pain controlled no CP SOB N V ambulating well tolerating po lochia moderate, going well - Physical Exam Vitals/I&O's: Vital Signs Temp Pulse Resp BP Pulse Ox 97.4 F L 64 18 106/51 L 97 08/10/19 08:02 08/10/19 08:02 08/10/19 08:02 08/10/19 08:02 08/09/19 20:08 Oxygen Delivery Method Room Air Weight: 136 lb Body Mass Index (BMI) 24.8 Intake and Output for Last 24 Hours 08/08/19 08/09/19 08/10/19 23:59 23:59 23:59 Intake Total 500 / 500 3112.57 / 3112.57 Output Total 1400 / 1400 Balance 500 / 500 1712.57 / 1712.57 General: Alert, Oriented x3 Current Medications Acetaminophen (Tylenol) 1,000 mg PO Q8H PRN PRN PRN Reason: Pain Score 1-3/10 Last Admin: 08/10/19 04:15 Dose: 1,000 mg Documented by: Bisacodyl (Dulcolax) 10 mg RECTAL UD PRN PRN Reason: If no BM Dibucaine (Dibucaine) 1 applic TOPICAL TID PRN PRN; Protocol PRN Reason: Discomfort Hydrocortisone (Hytone) 1 applic TOPICAL TID PRN PRN; Protocol PRN Reason: Discomfort Methylergonovine Maleate (Methergine) 0.2 mg IM X1 PRN PRN Reason: Excess bleeding/uterine atony Naproxen (Naprosyn) 500 mg PO Q8H PRN PRN PRN Reason: Pain Score 1-3/10 Last Admin: 08/10/19 08:29 Dose: 500 mg Documented by: Ondansetron HCl (Zofran) 4 mg IV Q4H PRN PRN PRN Reason: Nausea Oxycodone HCl (Oxyir) 5 - 10 mg PO Q4H PRN PRN PRN Reason: Pain Score 4-10/10 Senna/Docusate Sodium (Senokot-S, Kimmie-Colace) 1 - 2 tablet PO DAILY PRN PRN PRN Reason: Constipation Simethicone (Mylicon) 80 mg PO PCHS PRN PRN Reason: Indigestion/Stomach pain Sodium Chloride () 5 - 15 ml IV UD PRN PRN Reason: SALINE FLUSH Medical Necessity - Tobacco Use Smoking Status: Never smoker Assessment/Plan All Active Problems (Last Updated 08/07/19 @ 09:16 by Celeste Rene) SROM (spontaneous rupture of membranes) (Acute) Influenza B (Acute) Abnormal glucose affecting (Acute) General counselling and advice on contraception (Acute) (Acute) Supervision of normal (Acute) Chest pain (Resolved) Cystitis (Resolved) Dizziness (Resolved) Family history of coronary artery disease (Resolved) Placental cyst affecting (Resolved) Pre-syncope (Resolved) s/p PPD # 1 1. routine post delivery care 2. breast feeding- support given 3. rh positive 4. rubella immune
--- NOTE | 2019-08-10 08:41 | DCINST_ITS ---
Discharge Diet: No Restrictions Discharge Activity: Return to Normal Activity, May not drive while taking narcotic pain medications., May Shower May resume sexual activity in: 4-6 weeks Call your doctor if your incision/area has: Continuous Slow Oozing, Sudden Increased Bleeding, Increased Pain/ Swelling, Increased Redness, Foul Smelling Discharge Additional Instructions: If you experience any of the following, contact your healthcare provider. * Bleeding that soaks a pad every hour for 2 hours * Fever 100.4 or higher * Unrelieved incision or abdominal pain * Swelling, redness, discharge or bleeding from your incision or episiotomy site * Your incision begins to separate * Problems urinating (including inability to urinate or burning while urinating). * Visual changes * Severe headache * Flu-like symptoms * Pain or redness in one of both of your breasts * Pain, warmth, tenderness or swelling in your legs, especially the calf area * Frequent nausea and vomiting * Symptoms of depression or anxiety If you experience any of the following, call 911 or go to the nearest Emergency Room. * Chest pain * Problems breathing * Seizure activity * Partial or complete paralysis of a body part, slurred speech, weakness or drooping of the face, or a sudden inability to walk or hold your balance Allergies/Adverse Reactions: Allergies Sulfa (Sulfonamide Antibiotics) Adverse Reaction (Verified 08/08/19 19:40) Vomiting Please Follow Up With: Elizabet Chaudhari MD - [phone] When: Call to make an appointment with your doctor in 6 weeks. If you had elevated Blood pressure or 4th degree laceration you will need to be seen in 2 weeks. Primary Care Physician: Dimple Silver PA [Primary Care Provider] - Test Results: Test results from this visit will be discussed in further detail at your follow- up appointment, if applicable.
--- NOTE | 2019-08-10 08:41 | PCM.DCVAG ---
Discharge Diet: No Restrictions Discharge Activity: Return to Normal Activity, May not drive while taking narcotic pain medications., May Shower May resume sexual activity in: 4-6 weeks Call your doctor if your incision/area has: Continuous Slow Oozing, Sudden Increased Bleeding, Increased Pain/ Swelling, Increased Redness, Foul Smelling Discharge Additional Instructions: If you experience any of the following, contact your healthcare provider. Bleeding that soaks a pad every hour for 2 hours Fever 100.4 or higher Unrelieved incision or abdominal pain Swelling, redness, discharge or bleeding from your incision or episiotomy site Your incision begins to separate Problems urinating (including inability to urinate or burning while urinating). Visual changes Severe headache Flu-like symptoms Pain or redness in one of both of your breasts Pain, warmth, tenderness or swelling in your legs, especially the calf area Frequent nausea and vomiting Symptoms of depression or anxiety If you experience any of the following, call 911 or go to the nearest Emergency Room. Chest pain Problems breathing Seizure activity Partial or complete paralysis of a body part, slurred speech, weakness or drooping of the face, or a sudden inability to walk or hold your balance Allergies/Adverse Reactions: Allergies Sulfa (Sulfonamide Antibiotics) Adverse Reaction (Verified 08/08/19 19:40) Vomiting Please Follow Up With: Elizabet Chaudhari MD - [phone] When: Call to make an appointment with your doctor in 6 weeks. If you had elevated Blood pressure or 4th degree laceration you will need to be seen in 2 weeks. Primary Care Physician: Dimple Silver PA [Primary Care Provider] - Test Results: Test results from this visit will be discussed in further detail at your follow-up appointment, if applicable.
--- NOTE | 2019-08-10 10:58 | NURSING ---
ice packs on, anti inflammatories prn per orders given
[2019-08-10 14:00] VITALS: BP 102/55; PULSE 75; RESP 18; TEMP 36.4
--- NOTE | 2019-08-10 15:48 | NURSING ---
at 1510, assumed care of couplet from luz elena ortiz
== END 2019-08-10 17:55 | disposition home or self-care (01) | DRG 807 ==
LOC: WPOUT 20:16 → WP 08-09 09:32
PROVIDERS: Admitting Provider Obstetrics & Gynecology; PCP Physician Assistant; Referring Provider Obstetrics & Gynecology; Visit Provider Obstetrics & Gynecology
DX: O99.52 Diseases of the respiratory system complicating childbirth (principal); J10.1 Influenza due to other identified influenza virus with other respiratory manifestations; Z3A.40 40 weeks gestation of pregnancy; Z37.0 Single live birth
CPT/HCPCS: 59025; 59050; 84112; 85025; 86850; 86900; 86901; 99218; J7030; J7120; G0378

== ENCOUNTER → 2019-08-16 | Outpatient (CLI) | payer OTHER, SELFPAY ==
[2019-08-16 10:22] VITALS: BMI 24.8
== END | disposition home or self-care (01) ==
LOC: LABSPEC 12:49
PROVIDERS: PCP Physician Assistant; Referring Provider Nurse Practitioner Women's Health; Visit Provider Nurse Practitioner Women's Health
DX: R30.0 Dysuria (principal)
CPT/HCPCS: 87086

== ENCOUNTER → 2020-02-13 18:20 | Outpatient (CLI) | payer OTHER, SELFPAY ==
[2019-11-16 11:53] VITALS: BMI 24.8
--- NOTE | 2020-02-13 18:22 | US_ITS ---
STUDY: ULTRASOUND OF THE FEMALE PELVIS - COMPLETE REASON FOR EXAM: Female, 24 years old. IUD check. Pelvic pain. Abnormal uterine bleeding. LMP: Unknown. TECHNIQUE: Transabdominal and Transvaginal TECHNICAL QUALITY: Adequate. COMPARISON: CT of the abdomen and pelvis, 07/19/2018. FINDINGS: The uterus is anteverted and is tilted to the right side of the pelvis. The uterus measures 8.2 x 6.2 x 4.1 cm. There is a Nabothian cyst of the cervix. The endometrium measures 3 mm in thickness, and is hyperechoic. There is no demonstrated endometrial mass. There is a linear echogenic focus in the mid to lower uterine segment consistent with IUD. Echogenic focus within the anterior myometrium with shadowing which may represent one of the crossbars of the IUD. The right ovary is visualized. The right ovary measures 7.4 x 6.1 x 4.3 cm. There is a 5.6 x 5.5 x 3.8 cm simple ovarian cyst. There is no visualized right adnexal mass or complex lesion. There is normal arterial and normal venous vascularity. The left ovary is visualized. The left ovary measures 3.0 x 2.5 x 1.7 cm. There are multiple follicles of the left ovary without a dominant cyst. There is no visualized left adnexal mass or complex lesion. There is normal arterial and normal venous vascularity. There is minimal fluid in the cul-de-sac. The pre void volume of the bladder was 100 ml. The grossly normal Polycystic ovary disease: No. US/Pelvic (Non ) IMPRESSION: 1. IUD seen within the endometrial canal. There is an echogenic focus in the anterior myometrium with shadowing. Question cross arm versus fragment of the IUD within the uterine wall. CT may be required to further define this finding. 2. Large right ovarian cyst. 3. Normal left ovary. 4. Nabothian cyst. Electronically Signed: Paolo Zheng DO at 19:17 EDT Tel [phone], Service support ,
--- NOTE | 2020-02-13 18:35 | US_ITS ---
STUDY: ULTRASOUND OF THE FEMALE PELVIS - COMPLETE REASON FOR EXAM: Female, 24 years old. IUD check. Pelvic pain. Abnormal uterine bleeding. LMP: Unknown. TECHNIQUE: Transabdominal and Transvaginal TECHNICAL QUALITY: Adequate. COMPARISON: CT of the abdomen and pelvis, 07/19/2018. FINDINGS: The uterus is anteverted and is tilted to the right side of the pelvis. The uterus measures 8.2 x 6.2 x 4.1 cm. There is a Nabothian cyst of the cervix. The endometrium measures 3 mm in thickness, and is hyperechoic. There is no demonstrated endometrial mass. There is a linear echogenic focus in the mid to lower uterine segment consistent with IUD. Echogenic focus within the anterior myometrium with shadowing which may represent one of the crossbars of the IUD. The right ovary is visualized. The right ovary measures 7.4 x 6.1 x 4.3 cm. There is a 5.6 x 5.5 x 3.8 cm simple ovarian cyst. There is no visualized right adnexal mass or complex lesion. There is normal arterial and normal venous vascularity. The left ovary is visualized. The left ovary measures 3.0 x 2.5 x 1.7 cm. There are multiple follicles of the left ovary without a dominant cyst. There is no visualized left adnexal mass or complex lesion. There is normal arterial and normal venous vascularity. There is minimal fluid in the cul-de-sac. The pre void volume of the bladder was 100 ml. The grossly normal Polycystic ovary disease: No. US/Transvaginal Non- IMPRESSION: 1. IUD seen within the endometrial canal. There is an echogenic focus in the anterior myometrium with shadowing. Question cross arm versus fragment of the IUD within the uterine wall. CT may be required to further define this finding. 2. Large right ovarian cyst. 3. Normal left ovary. 4. Nabothian cyst. Electronically Signed: Paolo Zheng DO at 19:17 EDT Tel [phone], Service support ,
== END ==
PROVIDERS: PCP Physician Assistant; Visit Provider Obstetrics & Gynecology
DX: R10.2 Pelvic and perineal pain (principal); N93.9 Abnormal uterine and vaginal bleeding, unspecified; Z30.431 Encounter for routine checking of intrauterine contraceptive device; N83.201 Unspecified ovarian cyst, right side; N88.8 Other specified noninflammatory disorders of cervix uteri
CPT/HCPCS: 76830; 76856

== ENCOUNTER → 2020-09-11 18:32 | Outpatient (CLI) | payer OTHER, SELFPAY ==
[2020-09-11 10:04] VITALS: BMI 22.6
--- NOTE | 2020-09-11 18:35 | US_ITS ---
STUDY: ULTRASOUND OF THE FEMALE PELVIS - COMPLETE REASON FOR EXAM: Female, 25 years old. PELVIC PAIN -RADIATES TO BACK . History of ovarian cysts. LMP: 08/28/2020 TECHNIQUE: Transabdominal and Transvaginal TECHNICAL QUALITY: Adequate. COMPARISON: Comparison is made with prior study dated 02/13/2020. FINDINGS: The uterus is anteverted and is in a midline position. The uterus measures 8.9 cm x 6.7 cm x 4.7 cm. There is a Nabothian cyst of the cervix. The endometrium measures 9 mm in thickness, and is hyperechoic. There is no demonstrated endometrial mass. There is no demonstrated myometrial mass. I.U.D. - The patient does not have an I.U.D. The right ovary is visualized. The right ovary measures 3 cm x 1.6 cm x 1.3 cm. There is no right ovarian cyst or ovarian mass. There is no visualized right adnexal mass or complex lesion. There is normal arterial and normal venous vascularity. The left ovary is visualized. The left ovary measures 4.6 cm x 3.8 cm x 3.1 cm. There is a complex cyst measuring 3.4 cm x 2.5 cm x 2.2 cm in the left ovary. There is no visualized left adnexal mass or complex lesion. There is normal arterial and normal venous vascularity. There is a moderate amount of fluid in the cul-de-sac. The pre void volume of the bladder was 198 ml. US/Pelvic (Non ) IMPRESSION: The previously seen right ovarian cyst has resolved. There is evidence of a 3.4 cm x 2.5 cm x 2.2 cm complex cyst in the right ovary. Free fluid in the cul-de-sac. Electronically Signed: Sam Torres MD at 8:03 EDT , Service support ,
--- NOTE | 2020-09-11 18:49 | US_ITS ---
STUDY: ULTRASOUND OF THE FEMALE PELVIS - COMPLETE REASON FOR EXAM: Female, 25 years old. PELVIC PAIN -RADIATES TO BACK . History of ovarian cysts. LMP: 08/28/2020 TECHNIQUE: Transabdominal and Transvaginal TECHNICAL QUALITY: Adequate. COMPARISON: Comparison is made with prior study dated 02/13/2020. FINDINGS: The uterus is anteverted and is in a midline position. The uterus measures 8.9 cm x 6.7 cm x 4.7 cm. There is a Nabothian cyst of the cervix. The endometrium measures 9 mm in thickness, and is hyperechoic. There is no demonstrated endometrial mass. There is no demonstrated myometrial mass. I.U.D. - The patient does not have an I.U.D. The right ovary is visualized. The right ovary measures 3 cm x 1.6 cm x 1.3 cm. There is no right ovarian cyst or ovarian mass. There is no visualized right adnexal mass or complex lesion. There is normal arterial and normal venous vascularity. The left ovary is visualized. The left ovary measures 4.6 cm x 3.8 cm x 3.1 cm. There is a complex cyst measuring 3.4 cm x 2.5 cm x 2.2 cm in the left ovary. There is no visualized left adnexal mass or complex lesion. There is normal arterial and normal venous vascularity. There is a moderate amount of fluid in the cul-de-sac. The pre void volume of the bladder was 198 ml. US/Transvaginal Non- IMPRESSION: The previously seen right ovarian cyst has resolved. There is evidence of a 3.4 cm x 2.5 cm x 2.2 cm complex cyst in the right ovary. Free fluid in the cul-de-sac. Electronically Signed: Sam Torres MD at 8:03 EDT , Service support ,
== END ==
PROVIDERS: PCP Physician Assistant; Referring Provider Nurse Practitioner Women's Health; Visit Provider Nurse Practitioner Women's Health
DX: R30.0 Dysuria (principal); R10.2 Pelvic and perineal pain
CPT/HCPCS: 76830; 76856; 87086; 87088; 93976

== ENCOUNTER → 2020-12-19 14:31 | Outpatient (CLI) | payer OTHER, SELFPAY ==
[2020-09-11 10:04] VITALS: BMI 22.6
[2020-12-19 15:39] LABS: Absolute Lymphocyte Count 2.83 X10^3/uL (0.83-4.51); Absolute Neutrophil Count 3.3 X10^3/uL (2.0-7.7); Basophil# 0.04 X10^3/uL; Basophil% 0.6 % (0-1); Eosinophil# 0.07 X10^3/uL; Eosinophils% 1.1 % (0-5); Hematocrit 42.8 % (37-47); Hemoglobin 14.8 g/dL (12.0-15.0); Lymphocyte # 2.83 X10^3/ul (0.83-4.51); Lymphocyte % 42.9 % (19-41); Mean Corp Hgb Conc 34.6 g/dL (32-36); Mean Corpuscular Hgb 30.3 pg (27.0-32.0); Mean Corpuscular Volume 87.5 fL (81-99); Mean Platelet Vol. 10.2 fl (6.2-12.0); Monocyte# 0.35 X10^3/uL; Monocyte% 5.3 % (0-10); NRBC Flagged by Analyzer 0 % (0-5); Neutrophil % 49.9 % (47-70); Platelet Count 255 K/mm3 (150-450); RBC Distribution Width CV 11.6 % (11.6-14.6); RBC Distribution Width SD 37.5 fl (35.1-43.9); Red Blood Count 4.89 M/mm3 (4.2-5.4); White Blood Count 6.6 K/mm3 (4.4-11.0)
[2020-12-19 15:54] LABS: Erythrocyte Sedimentation Rate 6 mm/hr (0-30)
[2020-12-19 16:20] LABS: T4 Free Direct 1.15 ng/dL (0.76-1.46); Thyroid Stim Hormone (TSH) 0.95 uIU/mL (0.358-3.74)
== END ==
PROVIDERS: PCP Physician Assistant; Referring Provider Physician Assistant; Visit Provider Physician Assistant
DX: G44.209 Tension-type headache, unspecified, not intractable (principal)
CPT/HCPCS: 36415; 84439; 84443; 85025; 85652; 86038

== ENCOUNTER → 2021-06-16 08:46 | Outpatient (CLI) | payer OTHER, SELFPAY ==
--- NOTE | 2021-06-16 09:13 | US_ITS ---
STUDY: ULTRASOUND BREAST - RIGHT REASON FOR EXAM: Female, 25 years old. Palpable lump in the right breast. TECHNIQUE: Axial and longitudinal images of the RIGHT breast were performed with a high resolution ultrasound transducer. # OF IMAGES: 53 COMPARISON: None. FINDINGS: RIGHT Breast: The upper lateral aspect of the right breast was examined by ultrasound. No sonographic abnormalities seen. IMPRESSION: No sonographic abnormalities seen. ASSESSMENT CATEGORY: BIRADS Category 1: Negative. A letter regarding these results will be sent to the patient by the facility within 30 days. Electronically Signed: Sam Torres MD at 11:43 EST , Service support , STUDY: ULTRASOUND BREAST - LEFT REASON FOR EXAM: Female, 25 years old. Palpable lump left breast. TECHNIQUE: Axial and longitudinal images of the LEFT breast were performed with a high resolution ultrasound transducer. # OF IMAGES: 53 COMPARISON: None. FINDINGS: LEFT Breast: The upper lateral aspect of the left breast was examined by ultrasound. No sonographic abnormality is seen. US/Breast Limited Unilateral IMPRESSION: No sonographic abnormality is seen. ASSESSMENT CATEGORY: BIRADS Category 1: Negative. A letter regarding these results will be sent to the patient by the facility within 30 days. Electronically Signed: Sam Torres MD at 11:44 EST , Service support ,
== END ==
PROVIDERS: PCP Physician Assistant; Referring Provider Obstetrics & Gynecology; Visit Provider Obstetrics & Gynecology
DX: N63.10 Unspecified lump in the right breast, unspecified quadrant (principal); N64.4 Mastodynia
CPT/HCPCS: 76642

== ENCOUNTER → 2022-05-06 | Outpatient (CLI) | payer OTHER, SELFPAY ==
--- NOTE | 2022-05-06 09:07 | US_ITS ---
STUDY: ULTRASOUND BREAST - RIGHT REASON FOR EXAM: Female, 26 years old. Palpable lump in the right breast. TECHNIQUE: Axial and longitudinal images of the RIGHT breast were performed with a high resolution ultrasound transducer. # OF IMAGES: 20 COMPARISON: Comparison is made with prior mammogram done earlier in the day as well as prior sonogram of the right breast dated 06/16/2021. FINDINGS: RIGHT Breast: The lateral aspect of the right breast was examined by ultrasound. There is evidence of dense fiber glandular tissue. No sonographic abnormality is seen. US/Breast Limited Unilateral IMPRESSION: No sonographic abnormality is seen. ASSESSMENT CATEGORY: BIRADS Category 1: Negative. A letter regarding these results will be sent to the patient by the facility within 30 days. Electronically Signed: Sam Torres MD at 10:39 EST ,
--- NOTE | 2022-05-06 09:07 | BI_ITS ---
MAMMOGRAPHY - BILATERAL DIAGNOSTIC REASON FOR EXAM: Female, 26 years old. Palpable lump in the deep upper lateral aspect of the right breast. PERTINENT HISTORY: Grandmother with breast cancer. TECHNIQUE: Digital bilateral breast trista (3D mammographic acquisition) in the CC and MLO projections. 2-D mediolateral oblique (MLO) and craniocaudad (CC) views of both breasts were obtained. CAD: Full Field Digital Mammography with Computer Added Detection was performed. COMPARISON: None. Baseline examination. FINDINGS: Breast Composition: The breasts are extremely dense, which lowers the sensitivity of mammography. There are no dominant masses or suspicious calcifications. No other significant abnormalities are identified. BI/DIAG MAMM W/CAD, BILAT IMPRESSION: Negative diagnostic mammogram. With the patient''s history of a palpable lump in the deep upper outer aspect of the right breast, targeted correlation with ultrasound recommended. ASSESSMENT CATEGORY: BIRADS Category 0: Incomplete. Need additional imaging evaluation. A letter regarding these results will be sent to the patient by the facility within 30 days. Approximately 10% of breast cancers are not detected by mammography. A normal mammogram should not delay biopsy of a clinically suspicious abnormality. Electronically Signed: Sam Torres MD at 10:23 EST ,
== END | disposition home or self-care (01) ==
LOC: OPBI 09:06
PROVIDERS: PCP Physician Assistant; Visit Provider Nurse Practitioner Women's Health
DX: R92.2 Inconclusive mammogram (principal); N63.10 Unspecified lump in the right breast, unspecified quadrant; N63.20 Unspecified lump in the left breast, unspecified quadrant
CPT/HCPCS: 76642; 77062; 77066; G0279

== ENCOUNTER → 2022-05-10 | Outpatient (CLI) | payer OTHER, SELFPAY ==
--- NOTE | 2022-05-10 08:04 | US_ITS ---
STUDY: ABDOMINAL ULTRASOUND - RIGHT UPPER QUADRANT REASON FOR VISIT: Female, 26 years old epigastric pain TECHNIQUE: Ultrasound evaluation of the right upper quadrant was performed with real-time and static greenwood-scale imaging. TECHNICAL QUALITY: Adequate. COMPARISON: None. FINDINGS: Liver: The liver measures 16.9 cm. There is normal echogenicity of the liver. The bile ducts are within normal limits. There is hepatic color flow. The direction of portal flow is hepatopetal. There is no demonstrated mass lesion. Gallbladder: Normal distended gallbladder. The gallbladder wall measures 1.4 mm. There is a negative sonographic Vergara''s sign. There is no pericholecystic fluid. There are no gallstones. Common Bile Duct (C.B.D.): The common bile duct measures 2.7 mm. Pancreas: Normal size of the head, body and tail of the pancreas. There is normal echogenicity of the pancreas. There is no demonstrated pancreatic mass or cyst. Right Kidney: Normal size of the right kidney. The right kidney measures 10.8 cm x 4 cm x 3.8 cm. Normal renal cortex. The right cortex measures 1.4 cm. There is no demonstrated renal mass or cyst. There is no right hydronephrosis. US/Gallbladder IMPRESSION: Normal right upper quadrant ultrasound examination. Electronically Signed: Sam Torres MD at 9:24 EST ,
[2022-05-10 08:59] LABS: Absolute Lymphocyte Count 2.18 X10^3/uL (0.83-4.51); Absolute Neutrophil Count 4.5 X10^3/uL (2.0-7.7); Basophil# 0.05 X10^3/uL; Basophil% 0.7 % (0-1); Eosinophil# 0.06 X10^3/uL; Eosinophils% 0.8 % (0-5); Hematocrit 41.9 % (37-47); Hemoglobin 14.3 g/dL (12.0-15.0); Lymphocyte # 2.18 X10^3/ul (0.83-4.51); Lymphocyte % 30.6 % (19-41); Mean Corp Hgb Conc 34.1 g/dL (32-36); Mean Corpuscular Hgb 29.9 pg (27.0-32.0); Mean Corpuscular Volume 87.7 fL (81-99); Mean Platelet Vol. 9.8 fl (6.2-12.0); Monocyte# 0.33 X10^3/uL; Monocyte% 4.6 % (0-10); NRBC Flagged by Analyzer 0 % (0-5); Neutrophil # 4.48 X10^3/uL (2.7-7.7); Platelet Count 240 K/mm3 (150-450); RBC Distribution Width CV 11.3 % (11.6-14.6); RBC Distribution Width SD 36.3 fl (35.1-43.9); Red Blood Count 4.78 M/mm3 (4.2-5.4); White Blood Count 7.1 K/mm3 (4.4-11.0)
[2022-05-10 09:19] LABS: ALB/GLOB Ratio 1.2 RATIO (0.9-2.4); AST(SGOT) 11 U/L (15-37); Alanine Aminotransfer ALT/SGPT 21 U/L (13-56); Alkaline Phosphatase 59 U/L (45-117); Anion Gap 8 (5-15); BUN 15 mg/dL (7-18); BUN/Creat Ratio 19.5 RATIO (10-20); Calcium,Total 8.9 mg/dL (8.5-10.1); Chloride 105 mmol/L (98-107); Creatinine, Serum 0.77 mg/dL (0.55-1.02); EST Glomerular Filtration Rate 97 mL/min (>60); Est Glom Filt Rate - Afr Amer 117 mL/min (>60); Globulin 3.2 g/dL (2.2-4.2); Glucose 84 mg/dL (74-106); Potassium 3.9 mmol/L (3.5-5.1); Protein, Total 7.2 g/dL (6.4-8.2); Sodium Level 140 mmol/L (136-145)
== END | disposition home or self-care (01) ==
PROVIDERS: PCP Physician Assistant; Referring Provider Physician Assistant; Visit Provider Physician Assistant
DX: R10.13 Epigastric pain (principal)
CPT/HCPCS: 36415; 76705; 80053; 85025

== ENCOUNTER → 2022-07-01 | Outpatient (CLI) | payer OTHER, SELFPAY | END | disposition home or self-care (01) | PROVIDERS: PCP Physician Assistant; Visit Provider Obstetrics & Gynecology | DX: R30.0 Dysuria (principal) | CPT/HCPCS: 87086 ==

== ENCOUNTER → 2022-07-15 | Outpatient (CLI) | payer OTHER, SELFPAY ==
--- NOTE | 2022-07-15 12:53 | US_ITS ---
STUDY: ULTRASOUND OF THE FEMALE PELVIS - COMPLETE REASON FOR EXAM: Female, 26 years old. Pelvic pain LMP: 06/07/2022. TECHNIQUE: Transabdominal and Transvaginal TECHNICAL QUALITY: Adequate. COMPARISON: Comparison is made with prior study dated 09/11/2020. FINDINGS: The uterus is anteverted and is in a midline position. The uterus measures 10.1 cm x 6.3 cm x 4.7 cm. There is a Nabothian cyst of the cervix. The endometrium measures 4 mm in thickness, and is hyperechoic. There is no demonstrated endometrial mass. There is no demonstrated myometrial mass. I.U.D. - The patient does not have an I.U.D. The right ovary is visualized. The right ovary measures 3.6 cm x 1.9 cm x 1.6 cm. There is no right ovarian cyst or ovarian mass. There is no visualized right adnexal mass or complex lesion. There is normal arterial and normal venous vascularity. The left ovary is visualized. The left ovary measures 2.2 cm x 2.2 cm x 1.9 cm. There is no left ovarian cyst or ovarian mass. There is no visualized left adnexal mass or complex lesion. There is normal arterial and normal venous vascularity. There is no fluid in the cul-de-sac. The pre void volume of the bladder was 270 ml. Polycystic ovary disease: No. US/Pelvic (Non ) IMPRESSION: Normal female pelvis. Electronically Signed: Sam Torres MD at 15:23 EST ,
== END | disposition home or self-care (01) ==
LOC: OPUS 12:52
PROVIDERS: PCP Physician Assistant; Referring Provider Nurse Practitioner Women's Health; Visit Provider Nurse Practitioner Women's Health
DX: R10.2 Pelvic and perineal pain (principal)
CPT/HCPCS: 76830; 76856

== ENCOUNTER → 2023-01-30 | Outpatient (CLI) | payer OTHER, SELFPAY ==
[2023-01-31 09:30] LABS: Mucous, Urine 0 SEEN /hpf (<or=2+); Red Blood Cells-Urine 0 SEEN /hpf (0-5)
[2023-01-31 10:16] LABS: Color, Urine Yellow (Yellow); Glucose, Dipstick Normal (Normal); Ketone-Dipstick Negative (Negative); Leukocyte Esterase-Dipstick 500 /ul (Negative); Nitrite-Dipstick Negative (Negative); Occult Blood-Urine 150 /ul (Negative); Protein-Dipstick 30 mg/dl (Negative); Urine Bilirubin Dipstick Negative (Negative); Urine Clarity Sl. Cloudy (Clear); Urine Urobilinogen Normal (Normal)
[2023-01-31 10:34] LABS: Squamous Epithelial Cells - UA 0-5 SEEN /hpf (5-10); White Blood Cells 25-50 SEEN /hpf (0-5)
[2023-01-31 10:35] LABS: Bacteria 2+ /hpf (None Seen)
== END | disposition home or self-care (01) ==
LOC: LABSPEC 01-31 09:21
PROVIDERS: PCP Physician Assistant; Visit Provider Physician Assistant Surgical
DX: N39.0 Urinary tract infection, site not specified (principal)
CPT/HCPCS: 81001; 87077; 87086; 87088; 87186

== ENCOUNTER → 2023-11-29 | Outpatient (CLI) | payer OTHER, SELFPAY ==
[2023-11-29 12:29] LABS: Absolute Lymphocyte Count 1.73 X10^3/uL (0.83-4.51); Absolute Neutrophil Count 2.4 X10^3/uL (2.0-7.7); Basophil# 0.03 X10^3/uL; Basophil% 0.7 % (0-1); Eosinophil# 0.05 X10^3/uL; Eosinophils% 1.1 % (0-5); Hematocrit 40.4 % (37-47); Hemoglobin 13.7 g/dL (12.0-15.0); Lymphocyte # 1.73 X10^3/ul (0.83-4.51); Mean Corp Hgb Conc 33.9 g/dL (32-36); Mean Corpuscular Hgb 30.9 pg (27.0-32.0); Mean Corpuscular Volume 91.2 fL (81-99); Mean Platelet Vol. 10.8 fl (6.2-12.0); Monocyte# 0.24 X10^3/uL; Monocyte% 5.4 % (0-10); NRBC Flagged by Analyzer 0 % (0-5); Neutrophil # 2.38 X10^3/uL (2.7-7.7); Neutrophil % 53.6 % (47-70); Platelet Count 233 K/mm3 (150-450); RBC Distribution Width CV 12.2 % (11.6-14.6); RBC Distribution Width SD 40.7 fl (35.1-43.9); Red Blood Count 4.43 M/mm3 (4.2-5.4); White Blood Count 4.4 K/mm3 (4.4-11.0)
[2023-11-29 12:37] LABS: Vitamin D,25 Hydroxy 31.1 ng/mL
[2023-11-29 13:25] LABS: ALB/GLOB Ratio 1.2 RATIO (0.9-2.4); AST(SGOT) 30 U/L (15-37); Alanine Aminotransfer ALT/SGPT 41 U/L (13-56); Albumin, Serum 3.9 g/dL (3.2-5.0); Alkaline Phosphatase 65 U/L (45-117); Anion Gap 8 (5-15); BUN 18 mg/dL (7-18); BUN/Creat Ratio 24.1 RATIO (10-20); Chloride 110 mmol/L (98-107); Creatinine, Serum 0.75 mg/dL (0.55-1.02); EST Glomerular Filtration Rate 99 mL/min (>60); Est Glom Filt Rate - Afr Amer 119 mL/min (>60); Follicle Stimulating Hormone 7.7 mIU/mL; Globulin 3.2 g/dL (2.2-4.2); Glucose 80 mg/dL (74-106); Potassium 3.8 mmol/L (3.5-5.1); Protein, Total 7.1 g/dL (6.4-8.2); Sodium Level 138 mmol/L (136-145); Thyroid Stim Hormone (TSH) 1.16 uIU/mL (0.358-3.74)
[2023-12-02 18:09] LABS: Estrogen, Total, Serum 211 pg/mL (.)
== END | disposition home or self-care (01) ==
LOC: BIMLAB 08:52
PROVIDERS: Internal Medicine; PCP Physician Assistant; Referring Provider Physician Assistant; Visit Provider Physician Assistant
DX: E55.9 Vitamin D deficiency, unspecified (principal); R61 Generalized hyperhidrosis; F41.9 Anxiety disorder, unspecified
CPT/HCPCS: 36415; 80053; 82306; 82672; 83001; 83002; 84443; 85025

== ENCOUNTER → 2024-01-02 | Outpatient (CLI) | payer OTHER, SELFPAY ==
[2024-01-04 21:07] LABS: Chlamydia By Nucleic Acid AMP Negative (Negative); Gonococcus By Nucleic Acid AMP Negative (Negative)
[2024-01-05 23:06] LABS: HPV Reflexed? NOT INDICATED
== END | disposition home or self-care (01) ==
LOC: LABSPEC 13:19
PROVIDERS: PCP Physician Assistant; Referring Provider Nurse Practitioner Women's Health; Visit Provider Nurse Practitioner Women's Health
DX: N89.8 Other specified noninflammatory disorders of vagina (principal)
CPT/HCPCS: 87070; 87205; 87491; 87591; 88175; G0145

== ENCOUNTER → 2024-02-23 | Outpatient (CLI) | payer OTHER, SELFPAY ==
--- NOTE | 2024-02-23 12:53 | US_ITS ---
STUDY: ULTRASOUND OF THE FEMALE PELVIS - COMPLETE REASON FOR EXAM: Female, 28 years old. Chronic low back pain and pelvic pain. LMP: January 30, 2024. TECHNIQUE: Transabdominal TECHNICAL QUALITY: Adequate. COMPARISON: Comparison is made with prior study dated July 15, 2022. FINDINGS: The uterus is anteverted and is in a midline position. The uterus measures 8.7 cm x 5.3 cm x 4.5 cm. There is a Nabothian cyst of the cervix. The endometrium measures 6.8 mm in thickness, and is hyperechoic. There is no demonstrated endometrial mass. There is no demonstrated myometrial mass. I.U.D. - The patient does not have an I.U.D. . Dilated vessels surrounding the uterus. Pelvic congestion syndrome should be considered. The right ovary is visualized. The right ovary measures 3.1 cm x 1.9 cm x 1.7 cm. There is no right ovarian cyst or ovarian mass. There is no visualized right adnexal mass or complex lesion. There is normal arterial and normal venous vascularity. The left ovary is visualized. The left ovary measures 3.4 cm x 3 cm x 1.9 cm. There is no left ovarian cyst or ovarian mass. There is no visualized left adnexal mass or complex lesion. There is normal arterial and normal venous vascularity. There is no fluid in the cul-de-sac. The pre void volume of the bladder was 78 ml. US/Pelvic (Non ) IMPRESSION: Normal female pelvis. Questionable pelvic congestion syndrome. Electronically Signed: Sam Torres MD at 15:11 EDT ,
== END | disposition home or self-care (01) ==
PROVIDERS: PCP Physician Assistant; Referring Provider Nurse Practitioner Women's Health; Visit Provider Nurse Practitioner Women's Health
DX: R10.2 Pelvic and perineal pain (principal)
CPT/HCPCS: 76856

== ENCOUNTER 2024-05-10 11:00 | Outpatient (RCR) | payer OTHER, SELFPAY ==
--- NOTE | 2024-05-29 15:07 | HP.PTEVAL ---
Patient's Visit Information Visit Information Visit Information: JAYLYN KENNEDY is a 28 year old F referred to Physical Therapy by MONICA Lechuga with a diagnosis of OVERACTIVE BLADDER, PELVIC PAIN AND DYSPAREUNIA. Date of Evaluation: 05/03/24 Physical Therapist: Henna Snider PT, Cert MDT Visit Plan Frequency: 1x/Week Duration: 6-8 Plan: PF THERAPY FOR STRENGTHENING, LENGTHENING/RELAXATION AND ENDURANCE TRAINING. URINARY URGE AND FREQUENCY EDUCATION. HEALTHY BLADDER HABIT EDUCATION. HEALTHY BACK EDUCATION. TRAINING IN COORDINATION OF PELVIC FLOOR MUSCULATURE WITH HIP AND CORE (TRANSVERSE ABDOMINUS) MUSCULATURE. TRAINING IN ABDOMINAL CAVITY PRESSURE MGMT WITH ADL'S. 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 Disability: NO Present symptoms: CHIEF C/O FREQUENT URINATION AND URINARY LEAKING WITH COUGHING, SNEEZING, WORKING OUT AND HEARING RUNNING WATER. UI IS OCCURRING MORE THAN ONCE A WEEK BUT NOT DAILY. NOT WEARING PROTECTION. SEVERITY IS A FEW DROPS. A LITTLE BIT OF UI WITH URGENCY. PAIN IN VAGINAL AREA. CONSTANT PELVIC AND BACK PAIN THAT INCREASES AT NIGHT, WITH PERIOD AND FULL BLADDER. DECREASED PAIN TEMPORARILY WHEN EMPTIES BLADDER AND WITH IBUPROFEN. WALKING/MVMT ALSO SEEMS TO HELP. Present since: ON AND OFF FOR 3 YEARS. WORSE SINCE OCTOBER 2023 FOR NO APPARENT REASON. Pain Scale: WORST 7/10, LEAST 2/10 Currently: 2/10 Is it getting better, worse or staying the same: PAIN AND UI ARE WORSE NOW. Commenced as a result of: NO APPARENT REASON Symptoms at onset: FREQUENT URINATION, URINARY LEAKAGE, PRESSURE IN VAGINAL AREA. -PELVIC PAIN A YEAR LATER Disturbed sleep: GETTING UP TO URINATE APPROX 1 TIME AT NIGHT. PAIN DISTURBS SLEEP. Previous history/Previous treatment: TREATMENTS FOR UTI'S AND YEAST INFECTIONS. ULTRASOUND TESTS. Treatment this episode: WAITING FOR APPROVAL FROM INSURANCE OF CONTROL PILLS THAT HAVE BEEN PRESCRIBED. TRIED GEMTESA BUT HAD ALLERGIC REACTION. DR. WOODS PRESCRIBED ANOTHER MEDICATION BUT PATIENT HAS NOT TRIED IT YET. PLANNING TO SEE VASCULAR SURGEON AFTER TRIAL OF CONTROL. Fluid Intake: 9+ 8oz glasses per day. How long can you delay the need to urinate: 30 MIN Prolapse (Falling out feeling): NO Frequency of Urination: 9-12 times a day. Ability to stop urine flow: YES Ability to initiate urine stream: YES - NEVER DIFFICULT Dyspareunia: YES. DENIES UI DURING INTERCOURSE. PATIENT REPORTS A LOT OF PRESSURE IN ABDOMEN AND BACK AND PELVIC AREA AFTER INTERCOURSE. PAIN INTERNALLY DURING INTERCOURSE. Gait: INDEP Bowel Incontinence: NO Accidents: NO Unexplained weight loss: NO Imaging: ULTRASOUND - PELVIC CONGESTION SYNDROME. PATIENT REPORTS GETTING DX FROM US BY DR. SELLERS AFTER SHE HAD HER VISIT WITH DR. WOODS. PATIENT DENIES LUMBAR IMAGING. PMH/Recent major surgery: UNREMARKABLE. OTHER: PATIENT REPORTS INCREASED PAIN AFTER PELVIC EXAM WITH DR. WOODS. UI WITH JUMPING, WORKING OUT, COUGHING, SNEEZING, HEARING RUNNING WATER, SOMETIMES RISING FROM SITTING, SEEING TOLIET. 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 SHE REPORTS WORKING OUT IS A BIG PART OF HER FAMILY'S LIFE. Objective Objective: Sitting/Standing Posture: GOOD. NO RELEVANT LATERAL LUMBAR SHIFT. Other Observations: INDEP GAIT AND TRANSFERS. GOOD BALANCE. Sensory deficit: LUIZ LE LIGHT TOUCH SENSATION GROSSLY INTACT AND SYMMETRICAL ROM deficit: LUIZ LE'S WFL Motor deficit: 5/5 LUIZ LE'S. Reflexes: LUIZ LE'S 2+ Dural Signs: NEGATIVE LUIZ LE'S. Lumbar mvmt loss: flex - NIL ext - MOD R SG - MIN L SG - MIN PATIENT C/O INCREASED LBP WITH LUMBAR ROM TESTING ALL PLANES AND IT REMAINED WORSE A RESULT. SHE REPORTS TERRIBLE BACK PAIN WITH HER WORKOUTS BUT SHE DOES IT ANYWAY. Core strength: GOOD. PATIENT REPORTS SHE HAS BEEN DOING KEGELS ON HER OWN AND DESCRIBES REBECA HER WHOLE CORE AND PELVIC FLOOR INTENSELY WHENEVER SHE THINKS ABOUT IT AT HER DESK AND OTHER TIMES THROUGHOUT THE DAY. Palpation: NO ACUTE EXTERNAL LUMBAR OR PELVIC TENDERNESS. NO INTERNAL PELVIC EXAM TODAY DUE TO PAIN AFTER UROLOGY PELVIC EXAM AND CONTROL PRESCRIBED BUT NOT STARTED YET FOR PAIN (WAITING ON INS APPROVAL) FOR DX OF PELVIC CONGESTION SYNDROME SEEN ON ULTRASOUND. FUNCTIONAL SCREEN: Incontinence Impact Questionnaire Score: 4 Urogenital Distress Inventory Score: 12 TREATMENT: INITIATED TREATMENT THIS SESSION WITH EDUCATION, INSTRUCTION AND RECOMMENDATION FOR PELVIC FLOOR RELAXATION AND DOWNTRAINING VS STRENGTHENING AND DECREASING WORKOUTS TO INTENSITY THAT DOES NOT PROVOKE BACK PAIN. PATIENT STATES SHE CAN DEFINATELY DECREASE SOME OF WHAT SHE IS DOING. PATIENT WAS ALSO OPEN TO STOPPING PELVIC FLOOR CONTRACTION TYPE EX'S. Goals Goal 1:: DECREASE C/O LOW BACK AND PELVIC BY AT LEAST 50% TO ADL'S/EASE RECREATIONAL FUNCTION AND PATIENT WILL BE ABLE TO HAVE SEXUAL RELATIONS WITH HER WITHOUT PAIN. Goal Time Frame: 6-8 Weeks Goal 2:: NORMALIZE VOIDING FREQUENCEY TO EVERY 3-4 HOURS. Goal Time Frame: 6-8 Weeks Goal 3:: PATIENT WILL SUCCESSFULLY DELAY VOIDING LONG NEEDED WHEN URGENCY OCCURS TO SUCCESSFULLY MAKE IT TO THE BATHROOM. Goal Time Frame: 6-8 Weeks Goal 4:: PATIENT WILL DEMONSTRATE/COMMUNICATE 10 CONSISTENT AND CONSECUTIVE 10 SECOND PELVIC FLOOR MUSCLE CONTRACTIONS TO DEMONSTRATE IMPROVED PELVIC FLOOR ENDURANCE. Goal Time Frame: 8-12 Weeks Goal 5:: DEVELOP HEALTHY FLUID INTAKE HABITS WITH FLUID INTAKE OF ? BODY WEIGHT IN OUNCES PER DAY AND 2/3 BEING WATER. Goal Time Frame: 2-4 Weeks Goal 6:: PATIENT WILL BE INDEP WITH A HEP/HOME INSTRUCTIONS FOR CONTINUED IMPROVEMENT ONCE FORMAL PHYSICAL THERAPY CONCLUDES. Goal Time Frame: 8-12 Weeks Rehabilitation Potential Physical Therapy Diagnosis: THIS PATIENT PRESENTS TO PT WITH C/O LOW BACK PAIN, PELVIC FLOOR PAIN, DECREASED LUMBAR ROM, INCREASED URINARY FREQUENCY AND SIGNS OF BOTH URGE AND STRESS URINARY INCONTINENCE. Rehabilitation Potential: Good Anticipated Interventions Patient/Client Instruction: Educate patient on: Condition, Plan of Care and Risk Factors For the Purpose of:: To improve self management Therapeutic Exercise to Include: Strength training, Endurance training, Body mechanics, Postural training, Flexibilty training, Neuromotor development and Relaxation training For the Purpose of:: To decrease pain, To improve muscle performance and motor function, To increase tolerance to activity/condition/position, To improve ability of physical actions for home/community/work/leisure and To increase flexibility/ROM Manual Therapy Techniques to Include: Trigger point massage and Soft tissue mobilization Comment: NEEDED/APPROPRIATE For the Purpose of:: To decrease pain, To improve nutrient delivery to tissue and To decrease soft tissue restriction Text: Thank you for the opportunity to evaluate your patient. For Medicare and Medicare HMO plans, please review the plan of care and approve it. It will need to be FAXED BACK to us at [phone] for Medicare purposes. For Medicare only, by signing this I certify the plan of care. Please let me know if there are questions or concerns regarding this plan of care. Physician Signature: Date:
--- NOTE | 2024-09-23 20:20 | HP.PT.NRP ---
Patient Information Patient Information: JAYLYN KENNEDY was seen in my office for initial evaluation on 05/03/24. The following Plan of Care was established for this patient: POC Established Initial Frequency: 1x/Week Initial Duration: 6-8 Anticipated Interventions Patient/Client Instruction: Educate patient on: Condition, Plan of Care and Risk Factors For the Purpose of:: To improve self management Therapeutic Exercise to Include: Strength training, Endurance training, Body mechanics, Postural training, Flexibilty training, Neuromotor development and Relaxation training For the Purpose of:: To decrease pain, To improve muscle performance and motor function, To increase tolerance to activity/condition/position, To improve ability of physical actions for home/community/work/leisure and To increase flexibility/ROM Manual Therapy Techniques to Include: Trigger point massage and Soft tissue mobilization Comment: NEEDED/APPROPRIATE For the Purpose of:: To decrease pain, To improve nutrient delivery to tissue and To decrease soft tissue restriction Last Seen Last Seen: This patient was last seen in our office 05/10/25. Pertinent comments regarding their Physical therapy will appear below: It has been my pleasure to see this patient for a total of 2 visits. This patient has not returned to Physical Therapy for more visits and is appropriate to return to MD for further follow-up as needed. At this point I will be discontinuing this patient from physical therapy. I would be happy to see this patient again in the future if found appropriate by the physician. Thank you! Henna Snider, PT, Cert MDT
== END 2024-05-10 19:00 | disposition home or self-care (01) ==
LOC: PT 11:00
PROVIDERS: PCP Physician Assistant; Visit Provider Nurse Practitioner Women's Health
DX: R10.2 Pelvic and perineal pain (principal); N94.10 Unspecified dyspareunia; N32.81 Overactive bladder
CPT/HCPCS: 97162; 97530

== ENCOUNTER → 2024-06-15 | Outpatient (CLI) | payer OTHER, SELFPAY ==
--- NOTE | 2024-06-15 15:40 | CT_ITS ---
EXAM: CT ANGIOGRAPHY ABDOMEN AND PELVIS WITHOUT AND WITH INTRAVENOUS CONTRAST CLINICAL INDICATION: pelvic congestion syndrome -- WITHOUT + WITH DELAYED VENOUS PHASE images please TECHNIQUE: Helically acquired angiography images were obtained of the abdomen and pelvis without and with intravenous contrast. This CT exam was performed using one or more of the following dose reduction techniques: automated exposure control, adjustment of the mA and/or kV according to patient size, and/or use of iterative reconstruction technique. MIP reconstructed images were created and reviewed. CONTRAST: IV 100mL [id number] RADIATION DOSE: CTDIvol = 7.49 mGy, DLP = 1088.49 mGy-cm. COMPARISON: July 19, 2018. FINDINGS: VASCULATURE: AORTA: No acute findings. Normal caliber abdominal aorta. No dissection. CELIAC TRUNK AND MESENTERIC ARTERIES: No acute findings. No occlusion or significant stenosis. No dissection. RENAL ARTERIES: No acute findings. No occlusion or significant stenosis. No dissection. ILIAC ARTERIES: No acute findings. No occlusion or significant stenosis. No dissection. OTHER VEINS: Mildly prominent left pelvic veins and prominent and patent and enhanced left gonadal vein, right gonadal vein is not opacified on the delayed phase exam. LOWER THORAX: See above. ABDOMEN: LIVER: Unremarkable. Homogeneous. No focal mass. GALLBLADDER AND BILE DUCTS: Partially contracted gallbladder. No calcified gallstones. No gallbladder distention or wall edema. No intra- or extrahepatic biliary ductal dilation. PANCREAS: Unremarkable. No focal cystic or solid mass. SPLEEN: Unremarkable. Normal size without focal cystic or solid mass. ADRENALS: Unremarkable. No nodules. KIDNEYS AND URETERS: Small simple-appearing right renal cyst of 9 mm. Normal renal size and position. No hydronephrosis. STOMACH AND BOWEL: Moderate fluid and gas in the stomach mildly prominent fluid and gas in the small bowel. Moderate-large amount of stool in the proximal half of the colon, moderate stool in the rectosigmoid junction. No stomach or bowel distention. No focal inflammatory change. PELVIS: APPENDIX: Gas-filled appendix best seen on series 602 images 63 through 68. BLADDER: Unremarkable. REPRODUCTIVE: Tampon noted in the vagina. Unremarkable uterus, 9.1 cm in length. No suspicious adnexal cyst or mass. ABDOMEN and PELVIS: INTRAPERITONEAL SPACE: Slight intrapelvic fluid. No free air. BONES/JOINTS: Unremarkable. No suspicious lytic or blastic abnormality. SOFT TISSUES: Unremarkable. No discrete abdominal or pelvic wall hernia. LYMPH NODES: Unremarkable. No enlarged lymph nodes. CT/CTA Abd/Pelvis W/WO Contrast IMPRESSION: 1. Asymmetric size and number of enhanced left intrapelvic veins and of the patent left gonadal vein. 2. Slight intrapelvic fluid. 3. Moderate stool in the proximal half of the colon. Mildly prominent fluid in mid and distal small bowel loops shortness. Electronically Signed: Sydney Fitzgerald MD at 1:58 EST ,
== END | disposition home or self-care (01) ==
PROVIDERS: PCP Physician Assistant; Referring Provider Physician Assistant; Visit Provider Physician Assistant
DX: N94.89 Other specified conditions associated with female genital organs and menstrual cycle (principal)
CPT/HCPCS: 74174; Q9967

== ENCOUNTER → 2024-10-08 | Outpatient (CLI) | payer OTHER, SELFPAY ==
--- NOTE | 2024-10-08 09:30 | US_ITS ---
PROCEDURE: BREAST LIMITED UNILATERAL 10/08/2024 REASON FOR EXAM: BREAST LUMPS TECHNIQUE: Targeted right breast ultrasound. COMPARISON: Comparison is made with prior mammogram done earlier in the day. FINDINGS: Right breast ultrasound was targeted to the lateral aspect of the right breast.. The breast tissue appears sonographically normal. There are 2 adjacent subcentimeter cysts at the 9 and 10 o'clock position of the right breast. The largest cyst measures 7 mm x 7 mm x 4 mm. US/Breast Limited Unilateral IMPRESSION: Impression: There are 2, subcentimeter cysts at the 9 to 10 o'clock position of the breast at 7 cm from the nipple. The largest cyst measures 7 mm x 7 mm x 4 mm. Birads: BI-RADS 2: BENIGN. RECOMMEND ANNUAL MAMMOGRAPHIC SCREENING. Reading Location: [place] [id number]
--- NOTE | 2024-10-08 09:30 | US_ITS ---
PROCEDURE: BREAST LIMITED UNILATERAL 10/08/2024 REASON FOR EXAM: BREAST LUMPS TECHNIQUE: Targeted left breast ultrasound. COMPARISON: Comparison is made with prior mammogram done earlier in the day. FINDINGS: Left breast ultrasound was targeted to the axillary region of the left breast.. The breast tissue appears sonographically normal. No cyst, solid mass, or suspicious shadowing. There is a 1 cm x 0.5 cm 0.2 cm benign-appearing lymph node at the 2 o'clock position of the breast at 8 cm from the nipple. US/Breast Limited Unilateral IMPRESSION: Impression: Findings suggestive of a small benign-appearing lymph node correspo nds with the palpable lump. Birads: BI-RADS 2: BENIGN. RECOMMEND ANNUAL MAMMOGRAPHIC SCREENING. Reading Location: [place] [id number]
--- NOTE | 2024-10-08 09:30 | BI_ITS ---
EXAM: DIAG MAMM W/CAD, BILAT 10/08/2024 CLINICAL HISTORY: F, Age 29 y/o , BREAST LUMP Palpable lumps in both axillary regions. TECHNIQUE: Bilateral Diagnostic digital breast tomosynthesis with 2D and 3D images. Computer aided detection. COMPARISON: Prior exam(s) dated May 06, 2022.. FINDINGS: TISSUE DENSITY: The breast tissue is extremely dense which lowers the sensitivity of mammography. Bilateral Breast Mammographic Findings: No significant masses, calcifications or other abnormalities are identified. No suspicious masses, areas of developing architectural distortion, or suspicious calcifications. With the patient's history of palpable lumps in both axillary regions, correlation with ultrasound recommended. BI/DIAG MAMM W/CAD, BILAT IMPRESSION: Right Breast: BIRADS 0 Incomplete: Need additional imaging evaluation and/or pr ior mammograms for comparison.. Left Breast: BIRADS 0 Incomplete: Need additional imaging evaluation and/or pr ior mammograms for comparison.. OVERALL FINAL ASSESSMENT: BIRADS 0 Incomplete: Need additional imaging evaluati on and/or prior mammograms for comparison.. RECOMMENDATION: Recommendation: Ultrasound. A letter with findings and recommendations will be mailed to the patient. Reading Location: [place] [id number]
== END | disposition home or self-care (01) ==
PROVIDERS: PCP Physician Assistant; Referring Provider Nurse Practitioner Family; Visit Provider Nurse Practitioner Family
DX: N63.10 Unspecified lump in the right breast, unspecified quadrant (principal); N63.20 Unspecified lump in the left breast, unspecified quadrant
CPT/HCPCS: 76642; 77062; 77066; G0279

== ENCOUNTER → 2025-01-31 | Outpatient (CLI) | payer BC, SELFPAY | END | disposition home or self-care (01) | LOC: LABSPEC 11:51 | PROVIDERS: PCP Physician Assistant; Referring Provider Nurse Practitioner Family; Visit Provider Nurse Practitioner Family | DX: N89.8 Other specified noninflammatory disorders of vagina (principal) | CPT/HCPCS: 87070; 87205 ==

== ENCOUNTER → 2025-03-15 | Outpatient (CLI) | payer BC, SELFPAY | END | disposition home or self-care (01) | LOC: LABSPEC 13:39 | PROVIDERS: PCP Physician Assistant; Referring Provider Advanced Practice Midwife; Visit Provider Advanced Practice Midwife | DX: N89.8 Other specified noninflammatory disorders of vagina (principal) | CPT/HCPCS: 87070; 87205 ==